=== PATIENT | male | born 1985 | race Caucasian/White ===

== ENCOUNTER 2017-01-30 16:14 | Emergency (ER) | payer OTHER ==
[~2017-01-30] VITALS: Ht 175.3 cm; Wt 80.1 kg
[~2017-01-30 16:14] MED LIST: BUPR8MIS PO; METH500T PO; PRAZ2CAP3 PO; ZOLP5TAB PO
[2017-01-30 16:16] VITALS: TEMP 36.7; Ht 175.3 cm; Wt 80.1 kg
[2017-01-30] MEDS ORDERED: BUPR8MIS SL (16:49)
[2017-01-30] MEDS ORDERED: NAPR-1169 PO (16:53)
[2017-01-30 18:51] VITALS: BP 103/85; PULSE 97; O2SAT 94
--- NOTE | 2017-01-30 23:37 | EMERGENCY ROOM VISIT NOTE ---
History Report prepared by Maddie: Rosa Elena Rae Under the Supervision of: Dr. Luna Glynn D.O. First contact with patient: 16:21 Chief Complaint: BACK PAIN Stated Complaint: BACK PAIN History of Present Illness The patient is a 31 year old male who presents to the Emergency Room with complaints of worsening lower back pain starting 2 days ago. His pain radiates to his legs. He mentions that he does have leg pain radiating from his back at baseline, but this pain is worse. He also reports diarrhea and an episode of fecal incontinence today. He has been experiencing scrotal pain and impotence in the past week. He visited his PCP for the scrotal pain and was prescribed antibiotic for epididymitis last week. He has not received his ultrasound results. He denies any nausea, vomiting, numbness, chest pain, or shortness of breath. He reports that he has been shoveling snow lately. He has a history of opiate abuse and back pain. He request that he is not given opiates today. Source of History: patient Onset: 2 days ago Position: back (lower) Timing: worsening Associated Symptoms: + diarrhea, No SOB, No chest pain, No nausea, No numbness, No vomiting Note: Pt reports leg pain, scrotal pain, impotence, stool incontinence. Review of Systems See HPI for pertinent positives & negatives. A total of 10 systems reviewed and were otherwise negative. Past Medical & Surgical Medical Problems: (1) Contusion of hand, right (2) DEPRESSIVE DISORDER NEC (3) FAM HX-CARDIOVAS DIS NEC (4) FAM HX-DIABETES MELLITUS (5) Headache (6) LUMBOSACRAL NEURITIS NOS (7) Nasal fracture (8) SUICIDAL IDEATION Family History Cancer Diabetes mellitus Heart disease Hypertension Seizures Social History Smoking Status: Former Smoker Alcohol Use: none Drug Use: cocaine Marital Status: single Housing Status: lives with family Occupation Status: retired Current/Historical Medications Scheduled Duloxetine HCl (Cymbalta), 30 MG PO BID Gabapentin (Neurontin), 300 MG PO QID Naproxen (Naprosyn), 500 MG PO BID Scheduled PRN Buprenorphine Hcl-Naloxone Hcl (Suboxone 8-2 Mg), 4 MG SL Q4-6H PRN for Pain Prazosin Hcl (Prazosin), 2 MG PO HS PRN for ANXIETY/NIGHTMARES Zolpidem Tartrate (Ambien), 5 MG PO HS PRN for Sleep Allergies Coded Allergies: No Known Allergies (Unverified , 04/19/16) Physical Exam Vital Signs Date Time Temp Pulse Resp B/P Pulse Ox O2 Delivery O2 Flow Rate FiO2 01/30/17 18:51 97 20 103/85 94 Room Air 01/30/17 16:16 36.7 114 18 113/75 96 Room Air Physical Exam HEENT: Head - normocephalic and atraumatic Pupils are equal, round, and reactive to light. Extraocular eye muscles are intact, and sclera are anicteric. Nose - moist nasal mucosa without discharge. Mouth - moist buccal mucosa. Oropharynx is nonerythematous and there is no tonsillar exudate or edema noted. Neck: Supple; no JVD, nuchal rigidity, cervical lymphadenopathy. Heart: Regular rate and rhythm. There is a normal S1 and S2 with no murmurs, clicks, or gallops appreciated. Lungs: Clear to auscultation bilaterally with no wheezes, rales, or rhonchi. Abdomen: Soft, completely nontender, nondistended, with good bowel sounds. There are no palpable pulsatile masses or hepatosplenomegaly. There is no guarding, rigidity, or rebound noted. Back: Mild reproducible discomfort over the upper lumbar spine to palpation in the midline. Extremities: No evidence of cyanosis, clubbing, or edema. There are easily palpable peripheral pulses. Skin: warm and dry with good turgor and no rashes. Neuro: Normal muscle strength in both lower extremities. 3/4 patellar reflexes bilaterally. The rectal exam was performed by the medical student and revealed good tone. Medical Decision & Procedures ED Course 1745: The patient was evaluated in room C11. A complete history and physical examination were performed. Nursing notes and previous electronic medical records were reviewed. The patient declined wanting anything for pain. He had an MRI of the lumbar spine with and without contrast ordered. 1849: I reevaluated the patient. He has elected not to have the MRI. I discussed with him the risks and benefits of the MRI. I told him that untreated spinal cord compression could be irreparable. He expressed understanding. He states that he does not want to wait any longer because he is hungry. I offered to give him some food. He tells that that he will follow-up with his PCP tomorrow and they can get him in right away to be seen. I discussed with him the treatment plan. He verbalized understanding and agreement. He will be discharged home. Medical Decision This is a 31-year-old male patient presents emergency department with worsening low back pain over the past 2 days, stool incontinence today, and worsening impotence over the past one week. The patient has a history of bulging lumbar disks at L4-L5. The patient denies any new acute medical injury. The pain worsened 2 days ago but he became quite concerned today with the stool incontinence. I felt that the patient required an acute MRI of the lumbar spine to rule out cord compression. He decided that he did not want to wait to have that test completed. He will follow-up with his PCP tomorrow. I explained to him the hazards of delayed treatment for spinal cord compression. He would not agree to stay for the MRI. He will follow-up at the [facility] tomorrow. Impression Primary Impression: Low back pain Additional Impression: Stool incontinence Scribe Attestation The scribe's documentation has been prepared under my direction and personally reviewed by me in its entirety. I confirm that the note above accurately reflects all work, treatment, procedures, and medical decision making performed by me. Departure Information Dispostion Home / Self-Care Referrals Jose Guadalupe Spicer PA-C (PCP) Forms HOME CARE DOCUMENTATION FORM, IMPORTANT VISIT INFORMATION Patient Instructions My [facility] Additional Instructions You may have spinal cord compression causing your symptoms. You need an MRI of the lumbar spine RADHA. You said you would see your PCP in the AM. Return to the ER if you change your mind or symptoms worsen Problem Qualifiers
== END 2017-01-30 19:09 | disposition home or self-care (01) ==
LOC: C.EDB 16:15 → C.EDC 19:09
DX: M54.5 Low back pain (principal); R15.9 Full incontinence of feces; F32.9 Major depressive disorder, single episode, unspecified; M51.17 Intervertebral disc disorders with radiculopathy, lumbosacral region; Z87.81 Personal history of (healed) traumatic fracture; Z87.891 Personal history of nicotine dependence; Z79.899 Other long term (current) drug therapy; Z82.49 Family history of ischemic heart disease and other diseases of the circulatory system; Z83.3 Family history of diabetes mellitus; Z82.0 Family history of epilepsy and other diseases of the nervous system

== ENCOUNTER 2017-01-31 08:31 | Emergency (ER) | payer OTHER ==
[~2017-01-31] VITALS: Ht 177.8 cm; Wt 80.0 kg
[~2017-01-31 08:31] MED LIST changes: +BUPR8MIS SL; +NAPR-1169 PO
[2017-01-31 08:33] VITALS: TEMP 36.6; Ht 177.8 cm; Wt 80.0 kg
[2017-01-31 10:14] LABS: URINE APPEARANCE CLEAR (CLEAR); URINE BILIRUBIN NEG (NEG); URINE COLOR YELLOW; URINE NITRITE NEG (NEG); URINE PH 5.5 (4.5-7.5); UROBILINOGEN NEG (NEG)
[2017-01-31 10:18] LABS: MANUAL MICROSCOPIC REQUIRED? NO; REVIEW REQ? NO
[2017-01-31] MEDS ORDERED: GADAVIST IV PRN (11:00)
--- NOTE | 2017-01-31 12:27 | DIAGNOSTIC IMAGING REPORT ---
MRI LUMBAR SPINE COMBO CLINICAL HISTORY: Chronic low back pain. Fecal incontinence. COMPARISON STUDY: MRI of the lumbar spine dated 04/13/2015. TECHNIQUE: MRI of the lumbar spine is performed utilizing various T1 and T2-weighted sequences in the axial and sagittal planes. Contrast-enhanced sequences are acquired following the IV administration of 8 cc of Gadavist. The examination is modestly degraded by motion artifact. FINDINGS: Lumbar spine: Vertebral body height and alignment are maintained throughout the lumbar spine. No destructive bony lesion is seen. Normal marrow signal intensity is preserved throughout the visualized osseous structures. The transverse and spinous processes appear intact. There is no evidence of spondylolysis. Intervertebral discs: There is degenerative disc desiccation and mild loss of height at L4-L5 and L5-S1. The remaining discs are normal in height and signal intensity. Spinal cord: The visualized spinal cord is normal in morphology and signal intensity. The conus medullaris terminates at the level of L1. The nerve roots of the cauda equina are normal in morphology. No abnormal enhancement is identified on the postcontrast sequence. L1-L2: Unremarkable. L2-L3: Unremarkable. L3-L4: Minimal facet arthropathy is of no consequence. The central canal and neural foramina are widely patent. L4-L5: There is posterior disc bulge with annular fissure. This causes minimal acquired compromise of the central canal with a minimum AP diameter of 8.5 mm. There is minimal bilateral subarticular stenosis. The neural foramina are clear. L5-S1: There is a posterior disc bulge eccentric to the right with annular fissure. This likely impinges on the transiting right-sided sacral nerve roots. The central canal is widely patent. Minimal facet arthropathy is of no consequence. The neural foramina are clear. Sacrum: Partially imaged sacrum is normal in morphology and signal intensity. Soft tissues: The paraspinous soft tissues are within normal limits. The partially visualized retroperitoneal structures are grossly unremarkable, but incompletely assessed. IMPRESSION: 1. There is no large disc herniation. 2. Degenerative disc disease at L4-L5 and L5-S1 as above. A small disc bulge eccentric to the right at L5-S1 likely impinges on the transiting right-sided sacral nerve roots. See discussion for detailed level by level analysis. 3. No destructive osseous lesion is seen. Dictated: 01/31/2017 12:01 PM Transcribed: 01/31/2017 12:27 PM [email or web address] Electronically signed by: Jamey Hester M.D. 01/31/2017 12:37 PM Dictated Date/Time: 01/31/2017 12:01 PM
--- NOTE | 2017-01-31 12:52 | EMERGENCY ROOM VISIT NOTE ---
History First contact with patient: 08:44 Chief Complaint: BACK PAIN Stated Complaint: BACK PAIN History of Present Illness Patient is a 31-year-old white male who returns to the emergency department for ongoing low back pain radiating to the left leg, with associated fecal incontinence 2, who now states that he is "ready to have his MRI." Patient was here in the emergency department yesterday and was evaluated for the same complaint. MRI was ordered however the patient essentially left without completing the workup. He was seen by Dr. Glynn, please refer to her dictation for his further information. Patient states that since leaving the emergency department, he has continued to note pain in his low back that he rates an 8/ 10. He has a history of a lumbar disc disease. He has chronic radicular symptoms into the left leg with associated weakness, but reports that this is at his baseline. He has 2 more episodes of fecal incontinence since discharge from the emergency department yesterday. He does admit to diarrhea, but has been incontinent. He denies any bladder incontinence. He does report difficulty initiating his urinary stream. He has taken his normal prescription medications including naproxen, Suboxone and gabapentin as prescribed. He denies any falls or new injuries. He was treated with an unknown antibiotic about 1-2 months ago for testicular pain. He had a normal testicular ultrasound just a couple of weeks ago. He denies a history of C. difficile. He denies any abdominal pain. Review of Systems Review of systems as per HPI. All other systems reviewed were negative. 10 systems reviewed. Past Medical/Surgical History Medical Problems: (1) Contusion of hand, right (2) DEPRESSIVE DISORDER NEC (3) FAM HX-CARDIOVAS DIS NEC (4) FAM HX-DIABETES MELLITUS (5) Headache (6) LUMBOSACRAL NEURITIS NOS (7) Nasal fracture (8) SUICIDAL IDEATION Electronic medical records are reviewed and summarized as above/below. See Problem List. Family History Cancer Diabetes mellitus Heart disease Hypertension Seizures Social History Smoking Status: Former Smoker Alcohol Use: none Drug Use: cocaine Marital Status: single Housing Status: lives with family Occupation Status: retired Current/Historical Medications Scheduled Duloxetine HCl (Cymbalta), 30 MG PO BID Gabapentin (Neurontin), 300 MG PO QID Naproxen (Naprosyn), 500 MG PO BID Scheduled PRN Buprenorphine Hcl-Naloxone Hcl (Suboxone 8-2 Mg), 4 MG SL Q4-6H PRN for Pain Prazosin Hcl (Prazosin), 2 MG PO HS PRN for ANXIETY/NIGHTMARES Zolpidem Tartrate (Ambien), 5 MG PO HS PRN for Sleep Allergies Coded Allergies: No Known Allergies (Unverified , 01/31/17) Physical Exam Vital Signs Date Time Temp Pulse Resp B/P Pulse Ox O2 Delivery O2 Flow Rate FiO2 01/31/17 13:10 82 98/88 98 Room Air 01/31/17 11:20 82 15 121/70 98 Room Air 01/31/17 09:47 67 16 129/80 95 Room Air 01/31/17 08:33 36.6 80 18 123/79 98 Physical Exam CONSTITUTIONAL: Patient is a well-appearing 31-year-old white male who was awake and alert and laying on the gurney in no acute distress. HEENT: Normocephalic, atraumatic. Pupils equal, round, reactive to light and accommodation. EOMs intact without nystagmus. Sclera are anicteric. Tympanic membranes intact, with normal landmarks. External canals are clear. Oral and nasopharynx are clear. Mucous membranes are moist. Neck: Supple; no lymphadenopathy. Heart: Regular rate and rhythm. There is a normal S1 and S2 with no murmurs, clicks, or gallops appreciated. Lungs: Clear to auscultation bilaterally with no wheezes, rales, or rhonchi. Abdomen: Bowel sounds are present. Abdomen is soft, nontender and nondistended. Patient refuses rectal exam. Spine: Generalized discomfort to palpation over the entire lumbar spine, extending into the SI joints bilaterally. Diminished lumbar spine range of motion due to discomfort. Skin is intact without erythema, increased warmth, induration or outward signs of trauma. EXTREMITIES: No cyanosis, edema, joint tenderness or swelling. No deformity.distal pulses are easily palpable. Leg lengths are symmetrical. Negative straight leg raise testing bilaterally. Lower extremity DTRs are equal and symmetrical bilaterally. He reports diminished sensation to light touch over the left lower extremity. SKIN: No lesions or rash, normal skin turgor. The rectal exam was performed by the medical student and revealed good tone. Medical Decision & Procedures ER Provider Diagnostic Interpretation: MRI LUMBAR SPINE COMBO CLINICAL HISTORY: Chronic low back pain. Fecal incontinence. COMPARISON STUDY: MRI of the lumbar spine dated 04/13/2015. TECHNIQUE: MRI of the lumbar spine is performed utilizing various T1 and T2-weighted sequences in the axial and sagittal planes. Contrast-enhanced sequences are acquired following the IV administration of 8 cc of Gadavist. The examination is modestly degraded by motion artifact. FINDINGS: Lumbar spine: Vertebral body height and alignment are maintained throughout the lumbar spine. No destructive bony lesion is seen. Normal marrow signal intensity is preserved throughout the visualized osseous structures. The transverse and spinous processes appear intact. There is no evidence of spondylolysis. Intervertebral discs: There is degenerative disc desiccation and mild loss of height at L4-L5 and L5-S1. The remaining discs are normal in height and signal intensity. Spinal cord: The visualized spinal cord is normal in morphology and signal intensity. The conus medullaris terminates at the level of L1. The nerve roots of the cauda equina are normal in morphology. No abnormal enhancement is identified on the postcontrast sequence. L1-L2: Unremarkable. L2-L3: Unremarkable. L3-L4: Minimal facet arthropathy is of no consequence. The central canal and neural foramina are widely patent. L4-L5: There is posterior disc bulge with annular fissure. This causes minimal acquired compromise of the central canal with a minimum AP diameter of 8.5 mm. There is minimal bilateral subarticular stenosis. The neural foramina are clear. L5-S1: There is a posterior disc bulge eccentric to the right with annular fissure. This likely impinges on the transiting right-sided sacral nerve roots. The central canal is widely patent. Minimal facet arthropathy is of no consequence. The neural foramina are clear. Sacrum: Partially imaged sacrum is normal in morphology and signal intensity. Soft tissues: The paraspinous soft tissues are within normal limits. The partially visualized retroperitoneal structures are grossly unremarkable, but incompletely assessed. IMPRESSION: 1. There is no large disc herniation. 2. Degenerative disc disease at L4-L5 and L5-S1 as above. A small disc bulge eccentric to the right at L5-S1 likely impinges on the transiting right-sided sacral nerve roots. See discussion for detailed level by level analysis. 3. No destructive osseous lesion is seen. Laboratory Results Test 01/31/17 09:30 Urine Color YELLOW Urine Appearance CLEAR (CLEAR) Urine pH 5.5 (4.5-7.5) Urine Specific [place] 1.000 (1.000-1.030) Urine Protein NEG (NEG) Urine Glucose (UA) NEG (NEG) Urine Ketones NEG (NEG) Urine Occult Blood NEG (NEG) Urine Nitrite NEG (NEG) Urine Bilirubin NEG (NEG) Urine Urobilinogen NEG (NEG) Urine Leukocyte Esterase NEG (NEG) ED Course The patient was seen and evaluated as above. His old records are reviewed. Urinalysis was performed and was completely clear. Lumbar spine MRI with contrast was ordered. MRI noted chronic disc changes in the lumbar spine without evidence for abscess, large disc herniation or bony lesions. The patient was unable to provide a stool sample for analysis in the emergency department. I suspect he is suffering from a diarrheal illness in addition to an exacerbation of his chronic low back pain. He does admit to doing a lot of shoveling recently. I did discuss the possibility of a C. difficile colitis with the patient due to his recent antibiotic use, and did advise that if the diarrhea persists he should have his stools analyzed. Regarding his low back pain, he does not have any findings that are consistent with acute cord compression, epidural abscess, hematoma or cauda equina syndrome. He follows with pain management. He was encouraged to continue his regular medication regimen. He was advised to follow-up with his doctors [facility] the [facility] for further care and management. Medical Decision See ED course Impression Primary Impression: Exacerbation of chronic back pain Additional Impression: Diarrhea Departure Information Referrals Jose Guadalupe Spicer PA-C (PCP) Patient Instructions My [facility] Additional Instructions Rest and avoid heavy lifting until your symptoms resolve and then gradually return to full activity. A good rule of thumb is if it hurts your back to perform a certain activity, then it should be avoided until you are healthy again. A heating pad, warm compresses, or a hot shower may help with tight muscles and can be done several times a day as needed. Continue current medications. Return to the ER immediately for any numbness, tingling, severe pain, loss of control of your bowels or bladder, inability to walk, or as needed. Follow up with your primary care physician within 3-5 days for a recheck of your current condition. Problem Qualifiers
[2017-01-31 13:10] VITALS: BP 98/88; PULSE 82; O2SAT 98
== END 2017-01-31 13:10 | disposition home or self-care (01) ==
LOC: C.EDB 08:33 → C.EDA 13:10
DX: M54.5 Low back pain (principal); G89.29 Other chronic pain; R19.7 Diarrhea, unspecified; F32.9 Major depressive disorder, single episode, unspecified; Z82.49 Family history of ischemic heart disease and other diseases of the circulatory system; Z83.3 Family history of diabetes mellitus; Z87.891 Personal history of nicotine dependence; Z79.899 Other long term (current) drug therapy

== ENCOUNTER 2017-02-11 02:55 | Emergency (ER) | payer OTHER ==
[~2017-02-11] VITALS: Ht 177.8 cm; Wt 79.9 kg
[~2017-02-11 02:55] MED LIST changes: -BUPR8MIS PO; -METH500T PO
[2017-02-11 03:03] VITALS: TEMP 37; Ht 177.8 cm; Wt 79.9 kg
[2017-02-11] MEDS ORDERED: SODIUM CHLORIDE 0.9% 1000ML 1,000 ML IV ONE (03:30)
[2017-02-11 03:42] LABS: HEMATOCRIT 38.5 % (42-52); MEAN CELL VOLUME 81.7 fL (80-100); MEAN CORPUSCULAR HEMOGLOBIN 29.7 pg (25-34); MEAN CORPUSCULAR HGB CONC 36.4 g/dl (32-36); MEAN PLATELET VOLUME 9.9 fL (7.4-10.4); PLATELET COUNT 237 K/uL (130-400); RED BLOOD COUNT 4.71 M/uL (4.7-6.1)
[2017-02-11 04:09] LABS: BUN/CREATININE RATIO 8.4 (10-20); CALCIUM 9.3 mg/dl (8.5-10.1); CREATININE 1.2 mg/dl (0.60-1.40); MAGNESIUM 2.3 mg/dl (1.8-2.4); POTASSIUM 4.3 mmol/L (3.5-5.1)
[2017-02-11 04:20] LABS: ALB/GLOB RATIO 1.4 (0.9-2); THYROID STIMULATING HORMONE 3.01 uIu/ml (0.300-4.500)
[2017-02-11 04:22] LABS: BASO % 0.8 %; BASO ABS # 0.05 K/uL (0-0.2); COMPLETE YES; EOS % 2.2 %; IG% 0.2 %; MONO % 8.9 %; NEUT % 33.9 %
[2017-02-11 04:26] LABS: BENZODIAZEPINE, URINE NEG (NEG); COCAINE,URINE NEG (NEG); PHENCYCLIDINE, URINE NEG (NEG)
[2017-02-11 05:13] LABS: LYME DISEASE AB IGG NEG (NEG); LYME DISEASE AB IGM NEG (NEG)
[2017-02-11 05:35] VITALS: BP 108/70; PULSE 70; O2SAT 99
--- NOTE | 2017-02-11 09:03 | DIAGNOSTIC IMAGING REPORT ---
CT OF THE HEAD WITHOUT CONTRAST CLINICAL HISTORY: Headache. COMPARISON STUDY: Head CT October 06, 2014. CT DOSE: 614.27 mGy.cm TECHNIQUE: Helical axial images of the head were obtained without IV contrast. Automated exposure control was utilized for the study. FINDINGS: No acute intracranial hemorrhage, midline shift or mass effect is present. Ventricular system is normal. Basilar cisterns are patent. There are no extra-axial collections. Yuen-white differentiation is maintained. There are no findings to suggest acute dural sinus thrombosis or acute territorial infarct. There is no calvarial fracture. Visualized portions of the sinuses and mastoid air cells are clear. IMPRESSION: No acute intracranial findings. Electronically signed by: Phi Dietrich M.D. 02/11/2017 9:02 AM Dictated Date/Time: 02/11/2017 9:01 AM
--- NOTE | 2017-02-12 04:08 | EMERGENCY ROOM VISIT NOTE ---
History First contact with patient: 03:11 Chief Complaint: OTHER COMPLAINT Stated Complaint: CAN'T SLEEP History of Present Illness The patient is a 31 year old male who presents to the Emergency Room with complaints of difficulty sleeping for the past 3 days. The patient states that when he lays down he feels an electric sensation running from the top of his head into his hands and feet. The patient is having difficulty going to sleep, and is worried that he will not wake up when this occurs. He has not had fever or chills. He does complain of a headache after getting up from trying to sleep that will last for a few minutes before resolving. No injury or trauma. The patient does not have new medications or rash. He denies suicidal or homicidal ideation. He has been eating, drinking, and using the bathroom is normal. He rates his discomfort otherwise a 0/10. This only occurs when he is trying to sleep. Review of Systems More than 10 systems were reviewed and otherwise negative with the exception of history of present illness. Past Medical/Surgical History Medical Problems: (1) Contusion of hand, right (2) DEPRESSIVE DISORDER NEC (3) FAM HX-CARDIOVAS DIS NEC (4) FAM HX-DIABETES MELLITUS (5) Headache (6) LUMBOSACRAL NEURITIS NOS (7) Nasal fracture (8) SUICIDAL IDEATION Family History Cancer Diabetes mellitus Heart disease Hypertension Seizures Social History Smoking Status: Current Every Day Smoker Alcohol Use: none Drug Use: cocaine Marital Status: single Housing Status: lives with family Occupation Status: retired Current/Historical Medications Scheduled Duloxetine HCl (Cymbalta), 30 MG PO BID Gabapentin (Neurontin), 300 MG PO QID Naproxen (Naprosyn), 500 MG PO BID Scheduled PRN Buprenorphine Hcl-Naloxone Hcl (Suboxone 8-2 Mg), 4 MG SL Q4-6H PRN for Pain Prazosin Hcl (Prazosin), 2 MG PO HS PRN for ANXIETY/NIGHTMARES Zolpidem Tartrate (Ambien), 5 MG PO HS PRN for Sleep Allergies Coded Allergies: No Known Allergies (Unverified , 02/11/17) Physical Exam Vital Signs Date Time Temp Pulse Resp B/P Pulse Ox O2 Delivery O2 Flow Rate FiO2 02/11/17 05:35 70 18 108/70 99 02/11/17 04:27 71 18 106/69 98 Room Air 02/11/17 03:03 37.0 101 18 119/72 96 Room Air Pain Rating (0-10): 0 Physical Exam VITALS: Vitals are noted on the nurse's note and reviewed by myself. Vital signs stable. GENERAL: Well-developed, well-nourished, white male, who is in no acute distress and resting comfortably. Patient is cooperative with the examination. HEAD: Normocephalic atraumatic. EARS: External ear normal. External auditory canals clear, tympanic membranes pearly yuen without erythema or effusion bilaterally. EYES: Pupils equal round and reactive to light and accommodation. Conjunctivae without injection, sclerae without icterus. Extraocular movements intact. NOSE: Patent, turbinates without inflammation or discharge. MOUTH: Mucous membranes moist. Tonsils are not enlarged. Pharynx without erythema, blood, or exudate. Uvula midline. Airway patent. NECK: Supple without nuchal rigidity. No lymphadenopathy. No thyromegaly. Cervical spine is nontender. HEART: Regular rate and rhythm without murmurs gallops or rubs. LUNGS: Clear to auscultation bilaterally without wheezes, rales or rhonchi. No retractions or accessory muscle use. ABDOMEN: Positive normal bowel sounds x 4. Soft, nontender, without masses or organomegaly. No guarding or rebound tenderness. MUSCULOSKELETAL: No muscle atrophy, erythema, or edema noted. Full range of motion without joint tenderness in all extremities. No tenderness to palpation. Normal gait. Strength 5/5 throughout. NEURO: Patient was alert and oriented to person place and time. CN II through XII grossly intact. Medical Decision & Procedures ER Provider Diagnostic Interpretation: CT OF THE HEAD WITHOUT CONTRAST CLINICAL HISTORY: Headache. COMPARISON STUDY: Head CT October 06, 2014. CT DOSE: 614.27 mGy.cm TECHNIQUE: Helical axial images of the head were obtained without IV contrast. Automated exposure control was utilized for the study. FINDINGS: No acute intracranial hemorrhage, midline shift or mass effect is present. Ventricular system is normal. Basilar cisterns are patent. There are no extra-axial collections. Yuen-white differentiation is maintained. There are no findings to suggest acute dural sinus thrombosis or acute territorial infarct. There is no calvarial fracture. Visualized portions of the sinuses and mastoid air cells are clear. IMPRESSION: No acute intracranial findings. Laboratory Results 02/11/17 03:29 Red Blood Count 4.71, Mean Corpuscular Volume 81.7, Mean Corpuscular Hemoglobin 29.7, Mean Corpuscular Hemoglobin Concent 36.4, Mean Platelet Volume 9.9, Neutrophils (%) (Auto) 33.9, Lymphocytes (%) (Auto) 54.0, Monocytes (%) (Auto) 8.9, Eosinophils (%) (Auto) 2.2, Basophils (%) (Auto) 0.8, Neutrophils # (Auto) 2.14, Lymphocytes # (Auto) 3.40, Monocytes # (Auto) 0.56, Eosinophils # (Auto) 0.14, Basophils # (Auto) 0.05 02/11/17 03:29 Test 02/11/17 03:29 02/11/17 03:35 White Blood Count 6.30 K/uL (4.8-10.8) Red Blood Count 4.71 M/uL (4.7-6.1) Hemoglobin 14.0 g/dL (14.0-18.0) Hematocrit 38.5 % (42-52) Mean Corpuscular Volume 81.7 fL (80-100) Mean Corpuscular Hemoglobin 29.7 pg (25-34) Mean Corpuscular Hemoglobin Concent 36.4 g/dl (32-36) Platelet Count 237 K/uL (130-400) Mean Platelet Volume 9.9 fL (7.4-10.4) Neutrophils (%) (Auto) 33.9 % Lymphocytes (%) (Auto) 54.0 % Monocytes (%) (Auto) 8.9 % Eosinophils (%) (Auto) 2.2 % Basophils (%) (Auto) 0.8 % Neutrophils # (Auto) 2.14 K/uL (1.4-6.5) Lymphocytes # (Auto) 3.40 K/uL (1.2-3.4) Monocytes # (Auto) 0.56 K/uL (0.11-0.59) Eosinophils # (Auto) 0.14 K/uL (0-0.5) Basophils # (Auto) 0.05 K/uL (0-0.2) RDW Standard Deviation 37.4 fL (36.4-46.3) RDW Coefficient of Variation 12.4 % (11.5-14.5) Immature Granulocyte % (Auto) 0.2 % Immature Granulocyte # (Auto) 0.01 K/uL (0.00-0.02) Anion Gap 3.0 mmol/L (3-11) Est Creatinine Clear Calc Drug Dose 92.9 ml/min Estimated GFR () 93.5 Estimated GFR (Non- 80.7 BUN/Creatinine Ratio 8.4 (10-20) Calcium Level 9.3 mg/dl (8.5-10.1) Magnesium Level 2.3 mg/dl (1.8-2.4) Total Bilirubin 0.4 mg/dl (0.2-1) Aspartate Amino Transf (AST/SGOT) 46 U/L (15-37) Alanine Aminotransferase (ALT/SGPT) 63 U/L (12-78) Alkaline Phosphatase 69 U/L (45-117) Total Protein 7.3 gm/dl (6.4-8.2) Albumin 4.2 gm/dl (3.4-5.0) Globulin 3.1 gm/dl (2.5-4.0) Albumin/Globulin Ratio 1.4 (0.9-2) Thyroid Stimulating Hormone (TSH) 3.010 uIu/ml (0.300-4.500) Lyme Disease IgG Antibody NEG (NEG) Lyme Disease IgM Antibody NEG (NEG) Urine Opiates Screen NEG (NEG) Urine Methadone, Qualitative NEG (NEG) Urine Barbiturates NEG (NEG) Urine Phencyclidine (PCP) Level NEG (NEG) Ur Amphetamine/Methamphetamine NEG (NEG) MDMA (Ecstasy) Screen NEG (NEG) Urine Benzodiazepines Screen NEG (NEG) Urine Cocaine Metabolite NEG (NEG) Urine Marijuana (THC) NEG (NEG) Medications Administered Medications (Trade) Dose Ordered Sig/Muna Route Start Time Stop Time Status Last Admin Dose Admin Sodium Chloride (Nss 1000ml) 1,000 ml @ 999 mls/hr Q1H1M ONCE IV 02/11/17 03:30 02/11/17 04:30 DC 02/11/17 03:30 999 MLS/HR ED Course Physical exam and history were performed. Nursing notes and EMR were reviewed. Patient appears to have sleeplessness for the past 3 days. The patient does not appear toxic on examination. He does report a headache at times with the sensation of electricity running on his body. IV access was established and labs were obtained. CT of the head was performed. The patient blood work is as above and was reviewed. He does not have a significantly elevated white blood cell count, gross anemia, bandemia, or significant electrolyte imbalance. Lipase and transaminases are nondiagnostic. Drug abuse screen was negative. CT scan of the head was also negative. TSH shows a euthyroid state. I discussed options of care with the patient at length. He does have Ambien at home that he can use for sleep. There is also the concern that this may be the early onset of a mental health episode. I offered mental health assessment to the patient, who declined. The patient felt reassured that his evaluation today did not show an imminently life-threatening process. Overall he appears safe and stable for discharge. The patient was asked to follow very closely with his PCP in the next 1-2 days. He was thoroughly invited back to the ER with any new, worsening, or concerning symptoms. He is familiar with [facility] if needed. The patient was pleased with this plan and rated his discomfort a 0/ 10 at the time of departure. The chart was completed utilizing [employer] Speech Voice Recognition Software. Grammatical errors, random word insertions, pronoun errors, and incomplete sentences are an occasional consequence of this system due to software limitations, ambient noise, and hardware issues. Any formal questions or concerns about the content, text, or information contained within the body of this dictation should be directly addressed to the provider for clarification. . Medical Decision Differential diagnosis: Etiologies such as mood disorder, infection, hypoglycemia, electrolyte abnormalities, cardiac sources, intracerebral event, toxicologic, neurologic, as well as others were entertained. Impression Primary Impression: Sleeplessness Departure Information Dispostion Home / Self-Care Condition GOOD Forms HOME CARE DOCUMENTATION FORM, IMPORTANT VISIT INFORMATION Patient Instructions My [facility] Additional Instructions You were seen and evaluated today on an emergency basis only. This is not a substitute for, or an effort to provide, complete comprehensive medical care. It is not possible to recognize and treat all injuries or illnesses in a single emergency department visit. For this reason it is recommended that you followup with your primary care physician on Sunday or Sunday for ongoing care and evaluation. Continue medications as prescribed. Drink only fluids and remain well hydrated. You are welcome to return to the emergency department anytime with new, worsening, or concerning symptoms.
== END 2017-02-11 05:37 | disposition home or self-care (01) ==
LOC: C.EDB 02:56
DX: G47.00 Insomnia, unspecified (principal); F32.9 Major depressive disorder, single episode, unspecified; M54.16 Radiculopathy, lumbar region; F17.200 Nicotine dependence, unspecified, uncomplicated; Z87.828 Personal history of other (healed) physical injury and trauma; Z87.81 Personal history of (healed) traumatic fracture; Z79.899 Other long term (current) drug therapy; Z80.9 Family history of malignant neoplasm, unspecified; Z83.3 Family history of diabetes mellitus; Z82.49 Family history of ischemic heart disease and other diseases of the circulatory system; Z82.0 Family history of epilepsy and other diseases of the nervous system

== ENCOUNTER 2017-04-15 07:44 | Emergency (ER) | payer OTHER ==
[~2017-04-15] VITALS: Ht 175.3 cm; Wt 83.6 kg
[2017-04-15 07:49] VITALS: TEMP 36; Ht 175.3 cm; Wt 83.6 kg
[2017-04-15] MEDS ORDERED: AMIT25TA9 PO (07:52)
--- NOTE | 2017-04-15 08:24 | EMERGENCY ROOM VISIT NOTE ---
History First contact with patient: 08:09 Chief Complaint: ARM PAIN Stated Complaint: ARM PAIN History of Present Illness The patient is a 31 year old male who presents to the Emergency Room with complaints of right arm pain. The patient states that he woke this morning with tingling in both arms. He states that the left arm is now fine. He states that he has pain in the right arm from the elbow to the fingers. It is on the radial side. He does not recall any specific injury. He states that he is having difficulty moving the arm because of pain. He denies any fevers. He rates his discomfort a 4/10. He denies any chest pain or trouble breathing. He denies any neck pain. He denies any history of neck pain. Review of Systems A 10 system review of systems was completed with positives and pertinent negatives listed in the HPI. Past Medical/Surgical History Medical Problems: (1) Contusion of hand, right (2) DEPRESSIVE DISORDER NEC (3) FAM HX-CARDIOVAS DIS NEC (4) FAM HX-DIABETES MELLITUS (5) Headache (6) LUMBOSACRAL NEURITIS NOS (7) Nasal fracture (8) SUICIDAL IDEATION Family History Cancer Diabetes mellitus Heart disease Hypertension Seizures Social History Smoking Status: Current Every Day Smoker Alcohol Use: none Drug Use: cocaine Marital Status: single Housing Status: lives with family Occupation Status: retired Current/Historical Medications Scheduled Amitriptyline Hcl (Elavil), 25 MG PO HS Duloxetine HCl (Cymbalta), 30 MG PO BID Gabapentin (Neurontin), 300 MG PO QID Scheduled PRN Buprenorphine Hcl-Naloxone Hcl (Suboxone 8-2 Mg), 4 MG SL Q4-6H PRN for Pain Prazosin Hcl (Prazosin), 2 MG PO HS PRN for ANXIETY/NIGHTMARES Allergies Coded Allergies: No Known Allergies (Unverified , 04/15/17) Physical Exam Vital Signs Date Time Temp Pulse Resp B/P Pulse Ox O2 Delivery O2 Flow Rate FiO2 04/15/17 11:17 87 109/81 97 04/15/17 11:01 119/83 04/15/17 10:44 81 21 04/15/17 10:31 115/77 04/15/17 10:14 80 19 92 04/15/17 10:01 115/76 04/15/17 09:30 92 126/69 93 04/15/17 07:49 36.0 95 22 129/93 95 Room Air Physical Exam VITALS: Vitals are noted on the nurse's note and reviewed by myself. Vital signs stable. GENERAL: This 31-year-old male, in no acute distress, nondiaphoretic, well- developed well-nourished. SKIN: The skin was without rashes, erythema, edema, or bruising. There is no tenting of the skin. Capillary reflex less than 2 seconds. HEAD: Normocephalic atraumatic. EARS: External ears normal in appearance. EYES: Pupils equal round and reactive to light and accommodation. Conjunctivae without injection, sclerae without icterus. The patient has normal extraocular eye movement in the right eye but not in the left. He states this is his baseline. NOSE: Patent, turbinates without inflammation or discharge. No sinus tenderness. MOUTH: Mucous membranes moist. Tonsils are not enlarged. Pharynx without erythema or exudate. Uvula midline. Airway patent. Tongue does not deviate. NECK: Supple without nuchal rigidity. Cervical spine is nontender. No JVD. HEART: Regular rate and rhythm without murmurs gallops or rubs. LUNGS: Clear to auscultation bilaterally without wheezes, rales or rhonchi. No retractions or accessory muscle use. MUSCULOSKELETAL: No muscle atrophy, erythema, or edema noted. There is decreased range of motion at the right elbow secondary to pain. The patient is able to move the wrist but does have discomfort. The patient's tenderness is over the radial aspect of the right arm from the elbow to the fingers. Radial pulses 2+. NEURO: Patient was alert and oriented to person place and time. No focal neurological deficits. Medical Decision & Procedures ER Provider Diagnostic Interpretation: CT OF THE CERVICAL SPINE WITHOUT CONTRAST CLINICAL HISTORY: Right arm pain and numbness. COMPARISON STUDY: Cervical spine CT October 06, 2014. TECHNIQUE: Helical axial images of the cervical spine were obtained without IV contrast. Sagittal and coronal reconstructions were viewed. FINDINGS: Reversal of the normal cervical lordosis is unchanged since prior exam. There is no acute fracture or suspicious lesion within the cervical spine by CT. There is no prevertebral edema. Central canal and neural foramen are suboptimally assessed by CT. Disc spaces are preserved. IMPRESSION: 1. No acute cervical spine fracture or subluxation. 2. No change in appearance of the cervical spine since prior exam of October 06, 2014. Suboptimal evaluation of the central canal and neural foramen due to CT technique. CT OF THE HEAD WITHOUT CONTRAST CLINICAL HISTORY: Left-sided facial numbness. COMPARISON STUDY: Head CT February 11, 2017. TECHNIQUE: Helical axial images of the head were obtained without IV contrast. Automated exposure control was utilized for the study. FINDINGS: No acute intracranial hemorrhage, midline shift or mass effect is present. Ventricular system is normal. Basilar cisterns are patent. There are no extra-axial collections. Yuen-white differentiation is maintained. There are no findings to suggest acute dural sinus thrombosis or acute territorial infarct. There are no calvarial abnormalities. There are post surgical findings within the sinuses. IMPRESSION: No acute intracranial findings. CHEST 2 VIEWS ROUTINE CLINICAL HISTORY: Right arm pain and tingling. COMPARISON STUDY: Chest radiograph July 21, 2016. FINDINGS: Lung volumes are normal. There is no consolidation to suggest pneumonia. A calcified granuloma within the left lower lobe is noted. Pulmonary vascularity is normal. Cardiac size is normal. Mediastinal contours are normal. Linear lower lung opacity suggests atelectasis. IMPRESSION: No acute cardiopulmonary findings. RIGHT ELBOW MIN 3 VIEWS ROUTINE CLINICAL HISTORY: Right arm pain and tingling. COMPARISON: None FINDINGS: Alignment of the right elbow is anatomic. There is no acute fracture or joint effusion. No osseous lesion is identified. IMPRESSION: No abnormality of the right elbow. Laboratory Results 04/15/17 09:07 Red Blood Count 4.50, Mean Corpuscular Volume 84.9, Mean Corpuscular Hemoglobin 29.1, Mean Corpuscular Hemoglobin Concent 34.3, Mean Platelet Volume 9.7, Neutrophils (%) (Auto) 39.2, Lymphocytes (%) (Auto) 42.0, Monocytes (%) (Auto) 14.6, Eosinophils (%) (Auto) 3.4, Basophils (%) (Auto) 0.8, Neutrophils # (Auto ) 2.07, Lymphocytes # (Auto) 2.22, Monocytes # (Auto) 0.77, Eosinophils # (Auto ) 0.18, Basophils # (Auto) 0.04 04/15/17 09:07 Test 04/15/17 09:07 04/15/17 09:20 White Blood Count 5.28 K/uL (4.8-10.8) Red Blood Count 4.50 M/uL (4.7-6.1) Hemoglobin 13.1 g/dL (14.0-18.0) Hematocrit 38.2 % (42-52) Mean Corpuscular Volume 84.9 fL (80-100) Mean Corpuscular Hemoglobin 29.1 pg (25-34) Mean Corpuscular Hemoglobin Concent 34.3 g/dl (32-36) Platelet Count 197 K/uL (130-400) Mean Platelet Volume 9.7 fL (7.4-10.4) Neutrophils (%) (Auto) 39.2 % Lymphocytes (%) (Auto) 42.0 % Monocytes (%) (Auto) 14.6 % Eosinophils (%) (Auto) 3.4 % Basophils (%) (Auto) 0.8 % Neutrophils # (Auto) 2.07 K/uL (1.4-6.5) Lymphocytes # (Auto) 2.22 K/uL (1.2-3.4) Monocytes # (Auto) 0.77 K/uL (0.11-0.59) Eosinophils # (Auto) 0.18 K/uL (0-0.5) Basophils # (Auto) 0.04 K/uL (0-0.2) RDW Standard Deviation 39.3 fL (36.4-46.3) RDW Coefficient of Variation 12.7 % (11.5-14.5) Immature Granulocyte % (Auto) 0.0 % Immature Granulocyte # (Auto) 0.00 K/uL (0.00-0.02) Activated Partial Thromboplast Time 26.2 SECONDS (21.0-31.0) Partial Thromboplastin Ratio 1.0 Anion Gap 5.0 mmol/L (3-11) Est Creatinine Clear Calc Drug Dose 98.2 ml/min Estimated GFR () 103.9 Estimated GFR (Non- 89.6 BUN/Creatinine Ratio 8.4 (10-20) Calcium Level 8.8 mg/dl (8.5-10.1) Total Bilirubin 0.4 mg/dl (0.2-1) Aspartate Amino Transf (AST/SGOT) 69 U/L (15-37) Alanine Aminotransferase (ALT/SGPT) 113 U/L (12-78) Alkaline Phosphatase 104 U/L (45-117) Total Creatine Kinase 230 U/L (39-308) Troponin I < 0.015 ng/ml (0-0.045) Pro-B-Type Natriuretic Peptide 56 pg/ml (0-450) Total Protein 6.9 gm/dl (6.4-8.2) Albumin 4.2 gm/dl (3.4-5.0) Globulin 2.7 gm/dl (2.5-4.0) Albumin/Globulin Ratio 1.6 (0.9-2) Urine Color DK YELLOW Urine Appearance CLOUDY (CLEAR) Urine pH 8.0 (4.5-7.5) Urine Specific [place] 1.024 (1.000-1.030) Urine Protein NEG (NEG) Urine Glucose (UA) NEG (NEG) Urine Ketones NEG (NEG) Urine Occult Blood NEG (NEG) Urine Nitrite NEG (NEG) Urine Bilirubin NEG (NEG) Urine Urobilinogen NEG (NEG) Urine Leukocyte Esterase NEG (NEG) Urine WBC (Auto) 1-5 /hpf (0-5) Urine RBC (Auto) 0-4 /hpf (0-4) Urine Hyaline Casts (Auto) 0 /lpf (0-5) Urine Epithelial Cells (Auto) 5-10 /lpf (0-5) Urine Bacteria (Auto) NEG (NEG) ED Course The patient was seen and examined. Previous visits were reviewed. Medication list was reviewed. The patient does not have a fever or leukocytosis. He does not have any significant electrolyte abnormalities. His transaminases are elevated. The patient does not have any abdominal pain or tenderness. CPK is not elevated. Troponin is not elevated. INR is 1.0. Urinalysis is negative. CT scan of the brain was negative CT scan of the neck does not any obvious abnormality Chest x-ray and right elbow x-rays do not reveal any obvious abnormality The patient presents to the emergency department with right upper extremity pain , numbness and subjective weakness. The patient woke up he had the symptoms in both arms but the left had resolved. The patient likely has radial nerve palsy. Throughout his day in the emergency department the symptoms in the right arm continued to resolve. He did not have any neurologic deficit on exam or by history. While he was here, he developed some numbness in the left side of his face which also spontaneously resolved. The patient also has elevation in his transaminases. He denies alcohol use. He denies any significant Tylenol use. He was advised to follow-up with his family doctor to have his liver function testing repeated. The patient should follow-up with orthopedics for further evaluation and management of the arm. He should return with any worsening symptoms. The case was discussed with Dr. Villafana who agrees with the assessment and treatment plan. Medical Decision The differential diagnosis includes radial nerve palsy, CVA, TIA, and cranial bleeding, intracranial mass, electrolyte abnormality, cardiac ischemia, tendinitis among others Impression Primary Impression: Radial nerve palsy Additional Impression: Paresthesia Departure Information Dispostion Home / Self-Care Condition GOOD Referrals Jose Guadalupe Spicer PA-C (PCP) Joe Gavin, DO Patient Instructions ED Palsy Radial Nerve, My [facility] Additional Instructions Follow up with your family doctor for further evaluation of the elevated liver enzymes Follow up with orthopedics for the arm Return with worsening symptoms Problem Qualifiers
--- NOTE | 2017-04-15 08:54 | DIAGNOSTIC IMAGING REPORT ---
CHEST 2 VIEWS ROUTINE CLINICAL HISTORY: Right arm pain and tingling. COMPARISON STUDY: Chest radiograph July 21, 2016. FINDINGS: Lung volumes are normal. There is no consolidation to suggest pneumonia. A calcified granuloma within the left lower lobe is noted. Pulmonary vascularity is normal. Cardiac size is normal. Mediastinal contours are normal. Linear lower lung opacity suggests atelectasis. IMPRESSION: No acute cardiopulmonary findings. Electronically signed by: Phi Dietrich M.D. 04/15/2017 8:53 AM Dictated Date/Time: 04/15/2017 8:51 AM
--- NOTE | 2017-04-15 08:54 | DIAGNOSTIC IMAGING REPORT ---
RIGHT ELBOW MIN 3 VIEWS ROUTINE CLINICAL HISTORY: Right arm pain and tingling. COMPARISON: None FINDINGS: Alignment of the right elbow is anatomic. There is no acute fracture or joint effusion. No osseous lesion is identified. IMPRESSION: No abnormality of the right elbow. Electronically signed by: Phi Dietrich M.D. 04/15/2017 8:53 AM Dictated Date/Time: 04/15/2017 8:53 AM
[2017-04-15 09:28] LABS: BASO % 0.8 %; BASO ABS # 0.04 K/uL (0-0.2); COMPLETE YES; EOS % 3.4 %; HEMATOCRIT 38.2 % (42-52); LYMPH ABS # 2.22 K/uL (1.2-3.4); MEAN CELL VOLUME 84.9 fL (80-100); MEAN CORPUSCULAR HEMOGLOBIN 29.1 pg (25-34); MEAN CORPUSCULAR HGB CONC 34.3 g/dl (32-36); MEAN PLATELET VOLUME 9.7 fL (7.4-10.4); MONO % 14.6 %; NEUT % 39.2 %; PLATELET COUNT 197 K/uL (130-400); WHITE BLOOD COUNT 5.28 K/uL (4.8-10.8)
[2017-04-15 09:37] LABS: ALT/SGPT 113 U/L (12-78); AST/SGOT 69 U/L (15-37); BLOOD UREA NITROGEN 9 mg/dl (7-18); BUN/CREATININE RATIO 8.4 (10-20); CALCIUM 8.8 mg/dl (8.5-10.1); CARBON DIOXIDE 31 mmol/L (21-32); CHLORIDE 106 mmol/L (98-107); GLUCOSE 90 mg/dl (70-99); POTASSIUM 4.2 mmol/L (3.5-5.1); SODIUM 142 mmol/L (136-145)
[2017-04-15 09:42] LABS: ALB/GLOB RATIO 1.6 (0.9-2); ALKALINE PHOSPHATASE 104 U/L (45-117)
--- NOTE | 2017-04-15 09:42 | DIAGNOSTIC IMAGING REPORT ---
CT OF THE HEAD WITHOUT CONTRAST CLINICAL HISTORY: Left-sided facial numbness. COMPARISON STUDY: Head CT February 11, 2017. TECHNIQUE: Helical axial images of the head were obtained without IV contrast. Automated exposure control was utilized for the study. FINDINGS: No acute intracranial hemorrhage, midline shift or mass effect is present. Ventricular system is normal. Basilar cisterns are patent. There are no extra-axial collections. Yuen-white differentiation is maintained. There are no findings to suggest acute dural sinus thrombosis or acute territorial infarct. There are no calvarial abnormalities. There are post surgical findings within the sinuses. IMPRESSION: No acute intracranial findings. Electronically signed by: Phi Dietrich M.D. 04/15/2017 9:41 AM Dictated Date/Time: 04/15/2017 9:40 AM
--- NOTE | 2017-04-15 09:45 | DIAGNOSTIC IMAGING REPORT ---
CT OF THE CERVICAL SPINE WITHOUT CONTRAST CLINICAL HISTORY: Right arm pain and numbness. COMPARISON STUDY: Cervical spine CT October 06, 2014. TECHNIQUE: Helical axial images of the cervical spine were obtained without IV contrast. Sagittal and coronal reconstructions were viewed. FINDINGS: Reversal of the normal cervical lordosis is unchanged since prior exam. There is no acute fracture or suspicious lesion within the cervical spine by CT. There is no prevertebral edema. Central canal and neural foramen are suboptimally assessed by CT. Disc spaces are preserved. IMPRESSION: 1. No acute cervical spine fracture or subluxation. 2. No change in appearance of the cervical spine since prior exam of October 06, 2014. Suboptimal evaluation of the central canal and neural foramen due to CT technique. Electronically signed by: Phi Dietrich M.D. 04/15/2017 9:43 AM Dictated Date/Time: 04/15/2017 9:41 AM
[2017-04-15 10:02] LABS: URINE APPEARANCE CLOUDY (CLEAR); URINE BILIRUBIN NEG (NEG); URINE COLOR DK YELLOW; URINE NITRITE NEG (NEG); URINE SPECIFIC GRAVITY 1.024 (1.000-1.030); UROBILINOGEN NEG (NEG); ZZUR CULT IF INDIC CLEAN CATCH NO
[2017-04-15 10:11] LABS: MANUAL MICROSCOPIC REQUIRED? NO; REVIEW REQ? NO
[2017-04-15 11:17] VITALS: BP 109/81; PULSE 87; O2SAT 97
== END 2017-04-15 11:19 | disposition home or self-care (01) ==
LOC: EDBD 07:44 → C.EDA 07:46
DX: G58.8 Other specified mononeuropathies (principal); R20.2 Paresthesia of skin; F32.9 Major depressive disorder, single episode, unspecified; Z82.0 Family history of epilepsy and other diseases of the nervous system; Z82.49 Family history of ischemic heart disease and other diseases of the circulatory system; Z83.3 Family history of diabetes mellitus; F17.200 Nicotine dependence, unspecified, uncomplicated; Z79.899 Other long term (current) drug therapy

== ENCOUNTER 2017-07-13 12:43 | Inpatient (IN) | payer OTHER ==
[~2017-07-13] VITALS: Ht 172.7 cm; Wt 79.2 kg
[~2017-07-13 12:43] MED LIST changes: +AMIT25TA9 PO; -NAPR-1169 PO; -ZOLP5TAB PO
[2017-07-13] MEDS ORDERED: LORAZEPAM INJ 1 MG in SYRINGE 0.5 ML IV STA (13:21)
[2017-07-13] MEDS ORDERED: OMEP20CA9 PO (13:23)
[2017-07-13] MEDS ORDERED: BUPR1SUB23 PO (13:23)
[2017-07-13] MEDS ORDERED: DOCU-94 PO (13:23)
[2017-07-13] MEDS ORDERED: SODIUM CHLORIDE 0.9% 1000ML 1,000 ML IV ONE ×2 (13:30→14:45)
--- NOTE | 2017-07-13 13:33 | EMERGENCY ROOM VISIT NOTE ---
History First contact with patient: 13:27 Chief Complaint: OTHER COMPLAINT Stated Complaint: WITHDRAWL History of Present Illness The patient is a 32 year old male who presents to the Emergency Room with complaints of chest pain and shakiness that started this morning at 11 AM. The patient says that it feels like he is withdrawing from narcotics. He doesn't a history of narcotic abuse. He has not misused narcotics within the last year and a half. He does take Suboxone daily. He denies any changes in his medications. He denies any alcohol or other drug use. He denies any shortness of breath. No abdominal pain, nausea or vomiting. He reports feeling fine yesterday. His other complaint is he has having a difficult time urinating. He feels like his bladder is full, but he is unable to void. He denies any fever or chills. No dysuria. No hematuria. Review of Systems 10 system review performed and negative unless noted in HPI or below Past Medical/Surgical History Medical Problems: (1) Contusion of hand, right (2) DEPRESSIVE DISORDER NEC (3) FAM HX-CARDIOVAS DIS NEC (4) FAM HX-DIABETES MELLITUS (5) Headache (6) LUMBOSACRAL NEURITIS NOS (7) Nasal fracture (8) SUICIDAL IDEATION Family History Cancer Diabetes mellitus Heart disease Hypertension Seizures Social History Smoking Status: Current Every Day Smoker Alcohol Use: none Drug Use: cocaine Marital Status: single Housing Status: lives with family Occupation Status: retired Current/Historical Medications Scheduled Buprenorphine Hcl-Naloxone Hcl (Suboxone 8-2 Mg), 1 TAB PO BID Docusate Sodium (Colace), 1 CAP PO BID Duloxetine HCl (Cymbalta), 60 MG PO BID Gabapentin (Neurontin), 300 MG PO BID Omeprazole (Prilosec), 20 MG PO BID Physical Exam Vital Signs Date Time Temp Pulse Resp B/P (MAP) Pulse Ox O2 Delivery O2 Flow Rate FiO2 07/13/17 14:18 103 18 127/76 94 Room Air 07/13/17 13:03 112 07/13/17 12:50 37.6 114 18 118/93 96 Room Air Physical Exam GENERAL: 32-year-old male, anxious in appearance, manic, sweaty, SKIN: The skin was warm and moist HEAD: Normocephalic atraumatic. EYES: Pupils equal round and reactive to light and accommodation. Conjunctivae without injection, sclerae without icterus. Extraocular movements intact. MOUTH: Mucous membranes dry NECK: Supple without nuchal rigidity. No lymphadenopathy. Cervical spine is nontender. No JVD. HEART: Tachycardic, regular rhythm without murmurs gallops or rubs. LUNGS: Clear to auscultation bilaterally without wheezes, rales or rhonchi. No accessory muscle use. ABDOMEN: Positive bowel sounds x 4.Soft, nontender, without organomegaly. No guarding or rebound tenderness. MUSCULOSKELETAL: No muscle atrophy, erythema, or edema noted. Strength 5/5 throughout. NEURO: Patient was alert and oriented to person place and time. Tremor noted. Normal sensation to touch. No focal neurological deficits. Medical Decision & Procedures ER Provider Diagnostic Interpretation: SINGLE VIEW CHEST CLINICAL HISTORY: Atypical chest pain. FINDINGS: An AP, portable, upright chest radiograph is compared to study dated 04/15/2017 and correlated with chest CT dated 06/27/2015. The examination is degraded by portable technique and patient rotation. The cardiomediastinal silhouette is unremarkable. A 1.1 cm calcification containing nodule is again seen at the left lung base. No airspace consolidation, pleural effusion, or pneumothorax is seen. The bony thorax is grossly intact. IMPRESSION: 1. No acute cardiopulmonary abnormality. 2. A calcification containing nodule at the left lung base is again noted. This was better characterized by CT on 06/27/2015. Electronically signed by: Jamey Hester M.D. 07/13/2017 1:53 PM Dictated Date/Time: 07/13/2017 1:52 PM The status of this report is Signed. Laboratory Results 07/13/17 14:00 Red Blood Count 4.38, Mean Corpuscular Volume 83.3, Mean Corpuscular Hemoglobin 29.9, Mean Corpuscular Hemoglobin Concent 35.9, Mean Platelet Volume 10.2, Neutrophils (%) (Auto) 44.8, Lymphocytes (%) (Auto) 44.6, Monocytes (%) (Auto) 8.8, Eosinophils (%) (Auto) 1.4, Basophils (%) (Auto) 0.3, Neutrophils # (Auto) 3.11, Lymphocytes # (Auto) 3.10, Monocytes # (Auto) 0.61, Eosinophils # (Auto) 0.10, Basophils # (Auto) 0.02 07/13/17 14:00 Test 07/13/17 14:00 07/13/17 14:20 07/13/17 14:35 White Blood Count 6.95 K/uL (4.8-10.8) Red Blood Count 4.38 M/uL (4.7-6.1) Hemoglobin 13.1 g/dL (14.0-18.0) Hematocrit 36.5 % (42-52) Mean Corpuscular Volume 83.3 fL (80-100) Mean Corpuscular Hemoglobin 29.9 pg (25-34) Mean Corpuscular Hemoglobin Concent 35.9 g/dl (32-36) Platelet Count 201 K/uL (130-400) Mean Platelet Volume 10.2 fL (7.4-10.4) Neutrophils (%) (Auto) 44.8 % Lymphocytes (%) (Auto) 44.6 % Monocytes (%) (Auto) 8.8 % Eosinophils (%) (Auto) 1.4 % Basophils (%) (Auto) 0.3 % Neutrophils # (Auto) 3.11 K/uL (1.4-6.5) Lymphocytes # (Auto) 3.10 K/uL (1.2-3.4) Monocytes # (Auto) 0.61 K/uL (0.11-0.59) Eosinophils # (Auto) 0.10 K/uL (0-0.5) Basophils # (Auto) 0.02 K/uL (0-0.2) RDW Standard Deviation 39.3 fL (36.4-46.3) RDW Coefficient of Variation 13.0 % (11.5-14.5) Immature Granulocyte % (Auto) 0.1 % Immature Granulocyte # (Auto) 0.01 K/uL (0.00-0.02) Anion Gap 7.0 mmol/L (3-11) Est Creatinine Clear Calc Drug Dose 94.1 ml/min Estimated GFR () 103.1 Estimated GFR (Non- 89.0 BUN/Creatinine Ratio 6.5 (10-20) Calcium Level 8.8 mg/dl (8.5-10.1) Magnesium Level 2.1 mg/dl (1.8-2.4) Total Bilirubin 0.4 mg/dl (0.2-1) Aspartate Amino Transf (AST/SGOT) 22 U/L (15-37) Alanine Aminotransferase (ALT/SGPT) 34 U/L (12-78) Alkaline Phosphatase 72 U/L (45-117) Total Creatine Kinase 118 U/L (39-308) Creatine Kinase MB < 0.5 ng/ml (0.5-3.6) Creatine Kinase MB Ratio (0-3.0) Troponin I < 0.015 ng/ml (0-0.045) Total Protein 7.3 gm/dl (6.4-8.2) Albumin 4.6 gm/dl (3.4-5.0) Globulin 2.7 gm/dl (2.5-4.0) Albumin/Globulin Ratio 1.7 (0.9-2) Lipase 84 U/L (73-393) Ethyl Alcohol mg/dL < 3.0 mg/dl (0-3) Urine Color YELLOW Urine Appearance CLEAR (CLEAR) Urine pH 7.0 (4.5-7.5) Urine Specific [place] 1.014 (1.000-1.030) Urine Protein NEG (NEG) Urine Glucose (UA) NEG (NEG) Urine Ketones NEG (NEG) Urine Occult Blood NEG (NEG) Urine Nitrite NEG (NEG) Urine Bilirubin NEG (NEG) Urine Urobilinogen NEG (NEG) Urine Leukocyte Esterase NEG (NEG) Urine Opiates Screen NEG (NEG) Urine Methadone, Qualitative NEG (NEG) Urine Barbiturates NEG (NEG) Urine Phencyclidine (PCP) Level NEG (NEG) Ur Amphetamine/Methamphetamine NEG (NEG) MDMA (Ecstasy) Screen NEG (NEG) Urine Benzodiazepines Screen NEG (NEG) Urine Cocaine Metabolite NEG (NEG) Urine Marijuana (THC) NEG (NEG) Medications Administered Medications (Trade) Dose Ordered Sig/Muna Route Start Time Stop Time Status Last Admin Dose Admin Lorazepam 1 mg/ Syringe 1 ml @ 0.5 mls/min NOW STAT IV 07/13/17 13:21 07/13/17 13:26 DC 07/13/17 14:18 0.5 MLS/MIN Sodium Chloride 1,000 ml @ 999 mls/hr Q1H1M ONCE IV 07/13/17 13:30 07/13/17 14:30 DC 07/13/17 14:17 999 MLS/HR Acetaminophen (Tylenol Tab) 1,000 mg NOW STAT PO 07/13/17 14:42 07/13/17 14:47 DC 07/13/17 15:12 1,000 MG Aspirin (Aspirin Chew) 324 mg NOW STAT PO 07/13/17 14:42 07/13/17 14:47 DC 07/13/17 15:11 324 MG Sodium Chloride 1,000 ml @ 999 mls/hr Q1H1M ONCE IV 07/13/17 14:45 07/13/17 15:45 07/13/17 15:13 999 MLS/HR ECG Indication: chest pain Rate (beats per minute): 108 Rhythm: sinus tachycardia ED Course Patient was seen and examined Vital signs including blood pressure were reviewed medications list was verified with patient The patient was given 1 mg of Ativan IV and hydrated with a bolus of normal saline Labs were obtained, and a saline lock was established imaging was performed and reviewed The patient was reassessed and resting more comfortably. A bladder scan was performed which showed 1 L of urine. A Ma was inserted. The patient was reassessed. We discussed the results of his workup. He voiced understanding. He is in agreement to stay in the hospital overnight. The case was also discussed with case management and with the [facility] hospitalist group. The patient will be admitted for further treatment. Medical Decision Differential diagnosis: Illicit drug use, withdrawal from narcotics, lane, pulmonary embolus, Acute myocardial infarction, cardiac arrhythmia, anemia, thyroid abnormality, pneumothorax, pneumonia, bronchitis, pericarditis, electrolyte imbalance, serotonin syndrome This patient is a 32-year-old male that presented to the emergency department with complaints of severe shaking, sweating and left-sided chest pain. From a cardiac standpoint, his EKG did not show any signs of acute ischemia. His chest x-ray shows a pulmonary nodule, which is old. After reviewing the patient 's medications, I was concerned that he may be experiencing serotonin syndrome given the fact that he is hyperreflexive, sweating, tachycardic and mildly febrile. This is likely due to the fact that the patient is on duloxetine and Suboxone, which he claims he is taking correctly. There have been no changes in his medications. Either way, the patient will need to be observed in the hospital overnight for monitoring and likely medication adjustments. Blood Pressure Screening Patient's blood pressure: Normal blood pressure Impression Primary Impression: Serotonin syndrome Departure Information Referrals Jose Guadalupe Spicer PA-C (PCP) Patient Instructions [facility]
--- NOTE | 2017-07-13 13:54 | DIAGNOSTIC IMAGING REPORT ---
SINGLE VIEW CHEST CLINICAL HISTORY: Atypical chest pain. FINDINGS: An AP, portable, upright chest radiograph is compared to study dated 04/15/2017 and correlated with chest CT dated 06/27/2015. The examination is degraded by portable technique and patient rotation. The cardiomediastinal silhouette is unremarkable. A 1.1 cm calcification containing nodule is again seen at the left lung base. No airspace consolidation, pleural effusion, or pneumothorax is seen. The bony thorax is grossly intact. IMPRESSION: 1. No acute cardiopulmonary abnormality. 2. A calcification containing nodule at the left lung base is again noted. This was better characterized by CT on 06/27/2015. Electronically signed by: Jamey Hester M.D. 07/13/2017 1:53 PM Dictated Date/Time: 07/13/2017 1:52 PM
[2017-07-13 14:22] LABS: BASO % 0.3 %; BASO ABS # 0.02 K/uL (0-0.2); COMPLETE YES; EOS % 1.4 %; HEMATOCRIT 36.5 % (42-52); IG% 0.1 %; LYMPH % 44.6 %; MEAN CELL VOLUME 83.3 fL (80-100); MEAN CORPUSCULAR HEMOGLOBIN 29.9 pg (25-34); MEAN CORPUSCULAR HGB CONC 35.9 g/dl (32-36); MEAN PLATELET VOLUME 10.2 fL (7.4-10.4); MONO % 8.8 %; NEUT % 44.8 %; PLATELET COUNT 201 K/uL (130-400); RED BLOOD COUNT 4.38 M/uL (4.7-6.1); WHITE BLOOD COUNT 6.95 K/uL (4.8-10.8)
[2017-07-13] MEDS ORDERED: ASPIRIN 324 MG CHEW PO STA (14:42)
[2017-07-13] MEDS ORDERED: ACETAMINOPHEN 500 MG TAB PO STA (14:42)
[2017-07-13 14:45] LABS: ALT/SGPT 34 U/L (12-78); AST/SGOT 22 U/L (15-37); BLOOD UREA NITROGEN 7 mg/dl (7-18); BUN/CREATININE RATIO 6.5 (10-20); CALCIUM 8.8 mg/dl (8.5-10.1); CARBON DIOXIDE 28 mmol/L (21-32); CHLORIDE 105 mmol/L (98-107); GLUCOSE 102 mg/dl (70-99); MAGNESIUM 2.1 mg/dl (1.8-2.4); POTASSIUM 3.8 mmol/L (3.5-5.1); SODIUM 140 mmol/L (136-145)
[2017-07-13 14:46] LABS: URINE APPEARANCE CLEAR (CLEAR); URINE BILIRUBIN NEG (NEG); URINE COLOR YELLOW; URINE NITRITE NEG (NEG); URINE SPECIFIC GRAVITY 1.014 (1.000-1.030); UROBILINOGEN NEG (NEG)
[2017-07-13 14:48] LABS: MANUAL MICROSCOPIC REQUIRED? NO; REVIEW REQ? NO
[2017-07-13 14:51] LABS: ALB/GLOB RATIO 1.7 (0.9-2); ALKALINE PHOSPHATASE 72 U/L (45-117)
[2017-07-13 15:18] LABS: BENZODIAZEPINE, URINE NEG (NEG); COCAINE,URINE NEG (NEG); PHENCYCLIDINE, URINE NEG (NEG)
[2017-07-13] MEDS ORDERED: LORAZEPAM 2 MG/ML 1 ML VIAL IV STA (15:47)
[2017-07-13 15:58] VITALS: O2SAT 94; Ht 172.7 cm; Wt 79.2 kg
[2017-07-13] MEDS ORDERED: POLYETHYLENE (MIRALAX) 17 GM PACK PO PRN (16:00)
[2017-07-13] MEDS ORDERED: ALUMINUM/MAGNESIUM/SIMETH (MAALOX MAX) 30 ML UDC PO PRN (16:00)
[2017-07-13] MEDS ORDERED: ONDANSETRON INJ 2 MG/ML 2 ML VIAL IV PRN (16:00)
[2017-07-13] MEDS ORDERED: MAGNESIUM HYDROXIDE SUSP 30 ML UDC PO PRN (16:00)
[2017-07-13] MEDS ORDERED: LORAZEPAM 2 MG/ML 1 ML VIAL IV PRN (16:00)
--- NOTE | 2017-07-13 16:31 | History and Physical ---
History & Physical Date & Time of Service: Jul 13, 2017 at 16:10 Chief Complaint: Withdrawl Primary Care Physician: Jose Guadalupe Spicer PA-C History of Present Illness Source: patient, clinic records, hospital records Patient is a pleasant 32 y/o male, with PMHx of GERD, chronic back pain, nightmares, depression, tobacco abuse, and h/o narcotic abuse currently on Suboxone, who presented to the ED because of "blacking-out" episodes, jerkiness , and falls occurring around 11AM today. Patient was in his normal state of health until the events occurring today. He was helping his dad clean windows. When he was finished, he went to return to his vehicle and fell/blacked out. He then proceed to drive home, but episodes continued so he presented to the ED. Patient is experiencing diffuse body clonus. He has never experienced anything like this before. He denies any drug use. He denies any alcohol use. He denies recent changes in his medication. He denies any current life stressors. Additionally, patient admits to difficulty with urination. Symptoms have been ongoing for weeks now. He states it takes him hours of trying to urinate before he can actually go. +bladder fullness. Patient denies any fever, chills, sweats , lightheadedness, dizziness, vision changes, CP, palpitations, edema, SOB, wheezing, cough, abdominal pain, nausea, vomiting, diarrhea, melena, numbness/ tingling, weakness, muscle/joint pain, anxiety/depression, active bleeding, or new skin discoloration/changes. Past Medical/Surgical History Medical Problems: GERD chronic back pain nightmares depression tobacco abuse h/o narcotic abuse Family History Cancer Diabetes mellitus Heart disease Hypertension Seizures Social History Smoking Status: Current Every Day Smoker Drug Use: cocaine Marital Status: single Housing status: lives with family Occupational Status: retired Multi-Drug Resistant Organisms History of MDRO: No Allergies Coded Allergies: No Known Allergies (Unverified , 04/15/17) Home Medications Scheduled Buprenorphine Hcl-Naloxone Hcl (Suboxone 8-2 Mg), 1 TAB PO BID Docusate Sodium (Colace), 1 CAP PO BID Duloxetine HCl (Cymbalta), 60 MG PO BID Gabapentin (Neurontin), 300 MG PO BID Omeprazole (Prilosec), 20 MG PO BID Physical Exam Vital Signs Date Time Temp Pulse Resp B/P (MAP) Pulse Ox O2 Delivery O2 Flow Rate FiO2 07/13/17 16:00 88 20 115/82 98 Room Air 07/13/17 14:18 103 18 127/76 94 Room Air 07/13/17 13:03 112 07/13/17 12:50 37.6 114 18 118/93 96 Room Air General Appearance: no apparent distress, + pertinent finding (full body clonus ) Head: normocephalic, atraumatic Eyes: PERRL ENT: hearing grossly normal Neck: supple Respiratory/Chest: lungs clear, no respiratory distress, no accessory muscle use Cardiovascular: + tachycardia (rhythm regular ) Abdomen/GI: normal bowel sounds, non tender, soft Genitourinary - Male: + pertinent finding (Lerma- draining clear/yellow urine ) Back: normal inspection Extremities/Musculoskelatal: no calf tenderness, no pedal edema Neurologic/Psych: alert, normal mood/affect, oriented x 3 Skin: normal color, warm/dry, no rash Diagnostics Laboratory Results Results Past 24 Hours Test 07/13/17 14:00 07/13/17 14:20 07/13/17 14:35 Range/Units White Blood Count 6.95 4.8-10.8 K/uL Red Blood Count 4.38 4.7-6.1 M/uL Hemoglobin 13.1 14.0-18.0 g/dL Hematocrit 36.5 42-52 % Mean Corpuscular Volume 83.3 80-100 fL Mean Corpuscular Hemoglobin 29.9 25-34 pg Mean Corpuscular Hemoglobin Concent 35.9 32-36 g/dl Platelet Count 201 130-400 K/uL Mean Platelet Volume 10.2 7.4-10.4 fL Neutrophils (%) (Auto) 44.8 % Lymphocytes (%) (Auto) 44.6 % Monocytes (%) (Auto) 8.8 % Eosinophils (%) (Auto) 1.4 % Basophils (%) (Auto) 0.3 % Neutrophils # (Auto) 3.11 1.4-6.5 K/uL Lymphocytes # (Auto) 3.10 1.2-3.4 K/uL Monocytes # (Auto) 0.61 0.11-0.59 K/uL Eosinophils # (Auto) 0.10 0-0.5 K/uL Basophils # (Auto) 0.02 0-0.2 K/uL RDW Standard Deviation 39.3 36.4-46.3 fL RDW Coefficient of Variation 13.0 11.5-14.5 % Immature Granulocyte % (Auto) 0.1 % Immature Granulocyte # (Auto) 0.01 0.00-0.02 K/uL Sodium Level 140 136-145 mmol/L Potassium Level 3.8 3.5-5.1 mmol/L Chloride Level 105 98-107 mmol/L Carbon Dioxide Level 28 21-32 mmol/L Anion Gap 7.0 3-11 mmol/L Blood Urea Nitrogen 7 7-18 mg/dl Creatinine 1.10 0.60-1.40 mg/dl Est Creatinine Clear Calc Drug Dose 94.1 ml/min Estimated GFR () 103.1 Estimated GFR (Non- 89.0 BUN/Creatinine Ratio 6.5 10-20 Random Glucose 102 70-99 mg/dl Calcium Level 8.8 8.5-10.1 mg/dl Magnesium Level 2.1 1.8-2.4 mg/dl Total Bilirubin 0.4 0.2-1 mg/dl Aspartate Amino Transf (AST/SGOT) 22 15-37 U/L Alanine Aminotransferase (ALT/SGPT) 34 12-78 U/L Alkaline Phosphatase 72 45-117 U/L Total Creatine Kinase 118 39-308 U/L Creatine Kinase MB < 0.5 0.5-3.6 ng/ml Creatine Kinase MB Ratio 0-3.0 Troponin I < 0.015 0-0.045 ng/ml Total Protein 7.3 6.4-8.2 gm/dl Albumin 4.6 3.4-5.0 gm/dl Globulin 2.7 2.5-4.0 gm/dl Albumin/Globulin Ratio 1.7 0.9-2 Lipase 84 73-393 U/L Ethyl Alcohol mg/dL < 3.0 0-3 mg/dl Urine Color YELLOW Urine Appearance CLEAR CLEAR Urine pH 7.0 4.5-7.5 Urine Specific [place] 1.014 1.000-1.030 Urine Protein NEG NEG Urine Glucose (UA) NEG NEG Urine Ketones NEG NEG Urine Occult Blood NEG NEG Urine Nitrite NEG NEG Urine Bilirubin NEG NEG Urine Urobilinogen NEG NEG Urine Leukocyte Esterase NEG NEG Urine Opiates Screen NEG NEG Urine Methadone, Qualitative NEG NEG Urine Barbiturates NEG NEG Urine Phencyclidine (PCP) Level NEG NEG Ur Amphetamine/Methamphetamine NEG NEG MDMA (Ecstasy) Screen NEG NEG Urine Benzodiazepines Screen NEG NEG Urine Cocaine Metabolite NEG NEG Urine Marijuana (THC) NEG NEG Diagnostic Radiology SINGLE VIEW CHEST CLINICAL HISTORY: Atypical chest pain. FINDINGS: An AP, portable, upright chest radiograph is compared to study dated 04/15/2017 and correlated with chest CT dated 06/27/2015. The examination is degraded by portable technique and patient rotation. The cardiomediastinal silhouette is unremarkable. A 1.1 cm calcification containing nodule is again seen at the left lung base. No airspace consolidation, pleural effusion, or pneumothorax is seen. The bony thorax is grossly intact. IMPRESSION: 1. No acute cardiopulmonary abnormality. 2. A calcification containing nodule at the left lung base is again noted. This was better characterized by CT on 06/27/2015. Electronically signed by: Jamey Hester M.D. 07/13/2017 1:53 PM Dictated Date/Time: 07/13/2017 1:52 PM The status of this report is Signed. Draft = Not yet reviewed or approved by Radiologist. Signed = Reviewed and approved by Radiologist. EKG CEFERINO JAIME ID:[id number] 13-JUL-2017 12:58:37 [facility] Poor data quality, interpretation may be adversely affected Sinus tachycardia Otherwise normal ECG When compared with ECG of 21-JUL-2016 23:47, No significant change was found 25mm/s 10mm/mV 150Hz 8.0 SP2 12SL 241 DINA: 0 Referred by: Unconfirmed Vent. 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 "blacking-out" episodes, jerkiness, and falls, ?secondary to serotonin syndrome vs conversion disorder vs other etiology: - Admit to med/surg - IV NSS @ 100 ml/hr - IV Ativan 1 mg q4 hrs PRN - Tylenol PRN for fevers - Neuro checks q4 hrs - Check MRI - Urine drug screen- negative - Consult neurology, appreciate recommendations - Consult psychology, appreciate recommendations Urinary retention: - Bladder scan in ED for 1000 ml- Lerma placed - UA negative - Start Flomax 0.4 mg HS - Check PSA level Depression: Hold Cymbalta 60 mg BID for ?serotonin syndrome Chronic low back pain: Continue Gabapentin 300 mg BID h/o narcotic abuse: Continue Suboxone BID GERD: Protonix BID- resume Prilosec BID at discharge DVT prophylaxis: Lovenox SQ Code Status: LEVEL I, FULL Dispo: From home, lives w/ family i personally examined pt and verified all ray points w T Murarik PAC twitching/jerking. also urinary retention. HPI as above vitals noted. has near constant fairly high amplitude jerking of both legs at this time, notes that it's far calmer than before. generally tremulous nonspecifically. no rigidity. no cogwheeling. motor 5/5 equal b/l UE and LE. no noted sensory deficits. discussed necessity of rectal to check prostate given urinary retention and he understands but declines right now due to just wanting to eat. relates is OK w it having to be done during this hospital stay just declines for now tremors/urinary retention -if relates together seems to be neurologic pattern - ?MS, odd spinal cord pathology such as transverse myelitis, ?conversion -if separate add drug interaction "soft" serotonin syndrome to ddx for tremors and premature BPH to ddx for urinary retention -ativan prn for now -lerma drainage for now, urine culture -start w MRI brain, low threshold to MRI Cspine, Tspine -neurology and psych evals Level of Care Med/Surg Resuscitation Status FULL RESUSCITATION VTE Prophylaxis VTE Risk Assessment Done? Y/N: Yes Risk Level: Low Given or contraindicated: Enoxaparin (Lovenox)SQ, T.E.D. Stockings, SCD's
[2017-07-13] MEDS ORDERED: GABA-113 PO (16:52)
[2017-07-13] MEDS ORDERED: CYM/30 PO (16:54)
[2017-07-13] MEDS ORDERED: GADAVIST IV PRN (17:45)
--- NOTE | 2017-07-13 17:45 | DIAGNOSTIC IMAGING REPORT ---
BRAIN COMBO CLINICAL HISTORY: 32 years-old Male presenting with withdrawal, mental status change, shaky, history of necrotic diffuse. TECHNIQUE: Multisequence, multiplanar MR imaging of the brain was performed before and after the administration of intravenous contrast. IV contrast: 7.5 mL of Gadavist. COMPARISON: CT head from 04/15/2017. FINDINGS: Image quality is significantly degraded by motion artifact on postcontrast imaging. This limits diagnostic sensitivity of the exam. Ventricles and sulci normal in size. Brain parenchyma normal in appearance with preserved flores-white differentiation. No mass effect or midline shift. No hemorrhage or acute territorial infarct. No extra-axial fluid collection. T2 skull base flow voids preserved. No abnormal parenchymal enhancement. Bone marrow signal intensity within the calvarium within normal limits. IMPRESSION: No acute intracranial abnormality. Image quality is significantly degraded on postcontrast imaging secondary to motion artifact which limits diagnostic sensitivity of the exam. Within this limitation, no abnormal enhancement. Electronically signed by: Tino Reynolds M.D. 07/13/2017 5:44 PM Dictated Date/Time: 07/13/2017 5:40 PM
[2017-07-13] MEDS: SODIUM CHLORIDE 0.9% 1000ML 1,000 ML IV SCH (17:59)
[2017-07-13 18:18] VITALS: BP 119/72; PULSE 95; TEMP 37; O2SAT 99
[2017-07-13 19:04] LABS: PROTHROMBIN TIME (PATIENT) 10.6 SECONDS (9.0-12.0)
[2017-07-13] MEDS ORDERED: NICOTINE 21 MG/24 HR TDSY TD ONE (21:45)
[2017-07-13] MEDS: BUPRENORPHINE/NALOXONE 8/2 MG TAB SL SCH (21:59)
[2017-07-13] MEDS: DOCUSATE SODIUM 100 MG CAP PO SCH (21:59)
[2017-07-13] MEDS: PANTOprazole SOD 40 MG TAB PO SCH (21:59)
[2017-07-13] MEDS: TAMSULOSIN HCL 0.4 MG CAP PO SCH (22:01)
[2017-07-13] MEDS: ENOXAPARIN 40 MG/0.4 ML SYR SQ SCH (22:01)
[2017-07-13] MEDS: GABAPENTIN 300 MG CAP PO SCH (22:05)
[2017-07-13 23:00] VITALS: BP 148/101; PULSE 88; TEMP 36.8; O2SAT 84
[2017-07-13 23:05] VITALS: O2SAT 100
[2017-07-13] MEDS ORDERED: NITROGLYCERIN 0.4 MG SL PER TAB CHARGE SL STA (23:25)
[2017-07-13] MEDS ORDERED: NITROGLYCERIN 0.4 MG SL PER TAB CHARGE ONE (23:29)
[2017-07-13 23:30] VITALS: BP 140/98; PULSE 82; TEMP 36.8; O2SAT 99
[2017-07-13] MEDS: ACETAMINOPHEN 325 MG TAB PO PRN (23:40)
[2017-07-13] MEDS: LORAZEPAM INJ 1 MG in SYRINGE 0.5 ML IV PRN (23:55)
[2017-07-14] VITALS: O2SAT 100
[2017-07-14] MEDS: SODIUM CHLORIDE 0.9% 1000ML 1,000 ML IV SCH ×4 (01:09→21:43)
[2017-07-14] MEDS: LIDOCAINE HCL 2% JELLY 30 ML TUBE EXT PRN ×3 (01:10→21:42)
--- NOTE | 2017-07-14 05:26 | DIAGNOSTIC IMAGING REPORT ---
CHEST ONE VIEW PORTABLE CLINICAL HISTORY: 32 years-old Male presenting with shortness of breath, chest pain. TECHNIQUE: Portable upright AP view of the chest was obtained. COMPARISON: 07/13/2017. FINDINGS: Cardiomediastinal silhouette normal. Old calcified granuloma the left lung base. No focal infiltrate. No large effusion or pneumothorax. Suggestion of mild bronchial wall thickening. Mildly low lung volumes with hypoventilatory changes. Osseous structures normal. Upper abdomen normal. IMPRESSION: 1. Mildly low lung volumes with hypoventilatory changes. 2. Suggestion of mild bronchial wall thickening, which could suggest reactive airways disease. Electronically signed by: Tino Reynolds M.D. 07/14/2017 5:25 AM Dictated Date/Time: 07/14/2017 5:24 AM
[2017-07-14 07:36] VITALS: BP 119/78; PULSE 79; TEMP 36.5; O2SAT 100
[2017-07-14 08:00] VITALS: O2SAT 100
[2017-07-14] MEDS: BUPRENORPHINE/NALOXONE 8/2 MG TAB SL SCH ×3 (08:00→19:38)
[2017-07-14] MEDS: DOCUSATE SODIUM 100 MG CAP PO SCH ×2 (08:26→19:37)
[2017-07-14] MEDS: GABAPENTIN 300 MG CAP PO SCH ×2 (08:26→19:38)
[2017-07-14] MEDS: PANTOprazole SOD 40 MG TAB PO SCH ×2 (08:26→19:38)
[2017-07-14] MEDS: NICOTINE 21 MG/24 HR TDSY TD SCH (08:27)
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
[2017-07-14] MEDS: ACETAMINOPHEN 325 MG TAB PO PRN ×2 (10:47→15:16)
[2017-07-14 10:48] LABS: HEMATOCRIT 33.9 % (42-52); MEAN CELL VOLUME 84.5 fL (80-100); MEAN CORPUSCULAR HEMOGLOBIN 29.9 pg (25-34); MEAN CORPUSCULAR HGB CONC 35.4 g/dl (32-36); MEAN PLATELET VOLUME 10.1 fL (7.4-10.4); PLATELET COUNT 170 K/uL (130-400); RED BLOOD COUNT 4.01 M/uL (4.7-6.1); WHITE BLOOD COUNT 5.35 K/uL (4.8-10.8)
--- NOTE | 2017-07-14 10:58 | Progress Note ---
Subjective Date of Service: Jul 14, 2017. Subjective Pt evaluation today including: conversation w/ patient, physical exam, chart review, lab review, review of studies, conversation w/ strategic consultant, review of inpatient medication list Pt still tremulous and finding it hard to sit still in bed No pain Pt does report mild headache Problem List Medical Problems: (1) Abdominal pain Status: Acute (2) Acute exacerbation of chronic low back pain Status: Acute (3) Constipation Status: Acute (4) Diarrhea Status: Acute (5) Low back pain Status: Acute (6) Paresthesia Status: Acute (7) Radial nerve palsy Status: Acute (8) Right hand pain Status: Acute (9) RUQ abdominal pain Status: Acute (10) Serotonin syndrome Status: Acute (11) Sleeplessness Status: Acute (12) Stool incontinence Status: Acute Review of Systems Constitutional: No fever, No chills, No sweats, No weakness Eyes: No worsening of vision, No eye pain, No redness, No discharge Respiratory: No cough, No sputum, No wheezing, No shortness of breath, No dyspnea on exertion Cardiac: No chest pain, No orthopnea, No PND, No edema Abdomen: No pain, No nausea, No vomiting, No diarrhea, No constipation Musculoskeletal: No joint pain, No muscle pain, No swelling, No calf pain Male : No dysuria, No urinary frequency, No incontinence, No slowing stream Neurologic: No memory loss, No paralysis, No weakness, No numbness/tingling Psychiatric: No depression symptoms, No anhedonism, No anxiety, No insomnia Endo: No fatigue, No excessive thirst Skin: No rash, No itch Objective Vital Signs Date Time Temp Pulse Resp B/P (MAP) Pulse Ox O2 Delivery O2 Flow Rate FiO2 07/14/17 08:00 100 Room Air 07/14/17 07:36 36.5 79 18 119/78 (92) 100 Room Air 07/14/17 00:00 100 Room Air 07/13/17 23:30 36.8 82 22 140/98 (112) 99 Nasal Cannula 2.0 07/13/17 23:05 100 Nasal Cannula 2.0 07/13/17 23:00 36.8 88 28 148/101 (117) 84 Room Air 07/13/17 18:18 37.0 95 22 119/72 (88) 99 Room Air 07/13/17 16:45 90 20 110/85 100 Room Air 07/13/17 16:00 88 20 115/82 98 Room Air 07/13/17 15:58 94 Room Air 07/13/17 14:18 103 18 127/76 94 Room Air 07/13/17 13:03 112 07/13/17 12:50 37.6 114 18 118/93 96 Room Air Physical Exam General Appearance: WD/WN, + mild distress Eyes: normal inspection, PERRL, EOMI, sclerae normal Neck: supple, no adenopathy, thyroid normal, no JVD Respiratory/Chest: chest non-tender, lungs clear, normal breath sounds, no respiratory distress Cardiovascular: regular rate, rhythm, no edema, no gallop, no JVD Abdomen: normal bowel sounds, non tender, soft, no organomegaly Extremities: normal range of motion, non-tender, normal inspection, no pedal edema Neurologic/Psychiatric: no motor/sensory deficits, alert, + pertinent finding ( hyperreflexia) Skin: normal color, warm/dry, no rash Lymphatic: no adenopathy Laboratory Results Last 24 Hours Test 07/13/17 14:00 07/13/17 14:20 07/13/17 14:35 07/13/17 23:12 White Blood Count 6.95 K/uL Red Blood Count 4.38 M/uL Hemoglobin 13.1 g/dL Hematocrit 36.5 % Mean Corpuscular Volume 83.3 fL Mean Corpuscular Hemoglobin 29.9 pg Mean Corpuscular Hemoglobin Concent 35.9 g/dl Platelet Count 201 K/uL Mean Platelet Volume 10.2 fL Neutrophils (%) (Auto) 44.8 % Lymphocytes (%) (Auto) 44.6 % Monocytes (%) (Auto) 8.8 % Eosinophils (%) (Auto) 1.4 % Basophils (%) (Auto) 0.3 % Neutrophils # (Auto) 3.11 K/uL Lymphocytes # (Auto) 3.10 K/uL Monocytes # (Auto) 0.61 K/uL Eosinophils # (Auto) 0.10 K/uL Basophils # (Auto) 0.02 K/uL RDW Standard Deviation 39.3 fL RDW Coefficient of Variation 13.0 % Immature Granulocyte % (Auto) 0.1 % Immature Granulocyte # (Auto) 0.01 K/uL Prothrombin Time 10.6 SECONDS Prothromb Time International Ratio 1.0 Activated Partial Thromboplast Time 26.0 SECONDS Partial Thromboplastin Ratio 1.0 Sodium Level 140 mmol/L Potassium Level 3.8 mmol/L Chloride Level 105 mmol/L Carbon Dioxide Level 28 mmol/L Anion Gap 7.0 mmol/L Blood Urea Nitrogen 7 mg/dl Creatinine 1.10 mg/dl Est Creatinine Clear Calc Drug Dose 94.1 ml/min Estimated GFR () 103.1 Estimated GFR (Non- 89.0 BUN/Creatinine Ratio 6.5 Random Glucose 102 mg/dl Calcium Level 8.8 mg/dl Magnesium Level 2.1 mg/dl Total Bilirubin 0.4 mg/dl Aspartate Amino Transf (AST/SGOT) 22 U/L Alanine Aminotransferase (ALT/SGPT) 34 U/L Alkaline Phosphatase 72 U/L Total Creatine Kinase 118 U/L Creatine Kinase MB < 0.5 ng/ml Creatine Kinase MB Ratio Troponin I < 0.015 ng/ml Total Protein 7.3 gm/dl Albumin 4.6 gm/dl Globulin 2.7 gm/dl Albumin/Globulin Ratio 1.7 Lipase 84 U/L Ethyl Alcohol mg/dL < 3.0 mg/dl Urine Color YELLOW Urine Appearance CLEAR Urine pH 7.0 Urine Specific [place] 1.014 Urine Protein NEG Urine Glucose (UA) NEG Urine Ketones NEG Urine Occult Blood NEG Urine Nitrite NEG Urine Bilirubin NEG Urine Urobilinogen NEG Urine Leukocyte Esterase NEG Urine Opiates Screen NEG Urine Methadone, Qualitative NEG Urine Barbiturates NEG Urine Phencyclidine (PCP) Level NEG Ur Amphetamine/Methamphetamine NEG MDMA (Ecstasy) Screen NEG Urine Benzodiazepines Screen NEG Urine Cocaine Metabolite NEG Urine Marijuana (THC) NEG Bedside Glucose 109 mg/dl Test 07/14/17 10:12 White Blood Count 5.35 K/uL Red Blood Count 4.01 M/uL Hemoglobin 12.0 g/dL Hematocrit 33.9 % Mean Corpuscular Volume 84.5 fL Mean Corpuscular Hemoglobin 29.9 pg Mean Corpuscular Hemoglobin Concent 35.4 g/dl RDW Standard Deviation 39.3 fL RDW Coefficient of Variation 12.8 % Platelet Count 170 K/uL Mean Platelet Volume 10.1 fL Assessment and Plan Patient is a pleasant 32 y/o male, with PMHx of GERD, chronic back pain, nightmares, depression, tobacco abuse, and h/o narcotic abuse currently on Suboxone, who presented to the ED because of "blacking-out" episodes, jerkiness , and falls occurring around 11AM today. Myoclonic jerks, hyperreflexia, ?secondary to serotonin syndrome vs anticholinergic syndrome -Pt reports taking 20-25 benadryl tabs at night - Admit to med/surg - IV NSS @ 100 ml/hr - IV Ativan 1 mg q4 hrs PRN, cautious with use - Tylenol PRN for fevers - Neuro checks q4 hrs - Urine drug screen- negative - Consult neurology, likely related to mixed serotonin syndrome/anticholinergic syndrome, hold all benadryl and stop cymbalta at this time - Consult psychology, appreciate recommendations Urinary retention: - Bladder scan in ED for 1000 ml- Ma placed - UA negative - Start Flomax 0.4 mg HS - Check PSA level Depression: Hold Cymbalta 60 mg BID for ?serotonin syndrome Chronic low back pain: Continue Gabapentin 300 mg BID h/o narcotic abuse: Continue Suboxone BID GERD: Protonix BID- resume Prilosec BID at discharge DVT prophylaxis: Lovenox SQ Code Status: LEVEL I, FULL
[2017-07-14 11:27] LABS: THYROID STIMULATING HORMONE 0.792 uIu/ml (0.300-4.500)
[2017-07-14 11:29] LABS: BLOOD UREA NITROGEN 5 mg/dl (7-18); BUN/CREATININE RATIO 6.6 (10-20); CARBON DIOXIDE 29 mmol/L (21-32); CHLORIDE 110 mmol/L (98-107); CREATININE 0.79 mg/dl (0.60-1.40); GLUCOSE 80 mg/dl (70-99); SODIUM 142 mmol/L (136-145)
[2017-07-14] MEDS: LORAZEPAM INJ 1 MG in SYRINGE 0.5 ML IV PRN ×2 (11:41→18:27)
[2017-07-14 15:14] VITALS: BP 124/76; PULSE 72; TEMP 36.4; O2SAT 99
[2017-07-14 18:20] VITALS: BP 109/71; PULSE 91
[2017-07-14] MEDS: TAMSULOSIN HCL 0.4 MG CAP PO SCH (19:38)
[2017-07-14 20:00] VITALS: O2SAT 100
[2017-07-14] MEDS ORDERED: LORAZEPAM INJ 1 MG in SYRINGE 0.5 ML IV ONE (21:15)
[2017-07-14] MEDS: ENOXAPARIN 40 MG/0.4 ML SYR SQ SCH (21:42)
[2017-07-15] VITALS: O2SAT 100
[2017-07-15] MEDS: BUPRENORPHINE/NALOXONE 8/2 MG TAB SL SCH ×3 (07:25→20:17)
[2017-07-15] MEDS: PANTOprazole SOD 40 MG TAB PO SCH ×2 (07:25→20:17)
[2017-07-15] MEDS: DOCUSATE SODIUM 100 MG CAP PO SCH ×2 (07:25→20:17)
[2017-07-15] MEDS: GABAPENTIN 300 MG CAP PO SCH ×2 (07:25→20:17)
[2017-07-15] MEDS: NICOTINE 21 MG/24 HR TDSY TD SCH (07:26)
[2017-07-15] MEDS: SODIUM CHLORIDE 0.9% 1000ML 1,000 ML IV SCH ×2 (07:26→15:11)
[2017-07-15 07:51] VITALS: BP 124/82; PULSE 71; TEMP 36.7
[2017-07-15 07:52] LABS: HEMATOCRIT 33.6 % (42-52); MEAN CELL VOLUME 81.6 fL (80-100); MEAN CORPUSCULAR HEMOGLOBIN 29.6 pg (25-34); MEAN CORPUSCULAR HGB CONC 36.3 g/dl (32-36); MEAN PLATELET VOLUME 9.9 fL (7.4-10.4); PLATELET COUNT 182 K/uL (130-400); RED BLOOD COUNT 4.12 M/uL (4.7-6.1); WHITE BLOOD COUNT 5.29 K/uL (4.8-10.8)
[2017-07-15 08:00] VITALS: O2SAT 99
[2017-07-15 08:30] LABS: BUN/CREATININE RATIO 6.3 (10-20); CALCIUM 8.4 mg/dl (8.5-10.1); CREATININE 0.72 mg/dl (0.60-1.40); POTASSIUM 3.9 mmol/L (3.5-5.1)
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
[2017-07-15] MEDS: ACETAMINOPHEN 325 MG TAB PO PRN (13:56)
[2017-07-15] MEDS: LORAZEPAM INJ 1 MG in SYRINGE 0.5 ML IV PRN (15:10)
[2017-07-15 15:42] VITALS: BP 131/80; PULSE 73; TEMP 36.8; O2SAT 98
--- NOTE | 2017-07-15 16:41 | Progress Note ---
Subjective Date of Service: Jul 15, 2017. Subjective Pt evaluation today including: conversation w/ patient, physical exam, chart review, lab review, review of studies, review of inpatient medication list Pt resting comfortably in bed No blacking out episodes Reports feeling less anxious No acute events overnight Problem List Medical Problems: (1) Abdominal pain Status: Acute (2) Acute exacerbation of chronic low back pain Status: Acute (3) Constipation Status: Acute (4) Diarrhea Status: Acute (5) Low back pain Status: Acute (6) Paresthesia Status: Acute (7) Radial nerve palsy Status: Acute (8) Right hand pain Status: Acute (9) RUQ abdominal pain Status: Acute (10) Serotonin syndrome Status: Acute (11) Sleeplessness Status: Acute (12) Stool incontinence Status: Acute Review of Systems Constitutional: No fever, No chills, No sweats, No weakness ENT: No hearing loss, No unusual epistaxis, No nasal symptoms, No sore throat Respiratory: No cough, No sputum, No wheezing, No shortness of breath, No dyspnea on exertion Cardiac: No chest pain, No orthopnea, No PND, No edema, No claudication Abdomen: No pain, No nausea, No vomiting, No diarrhea, No constipation Musculoskeletal: No joint pain, No muscle pain, No swelling, No calf pain Male : No dysuria, No urinary frequency, No incontinence, No slowing stream Neurologic: No memory loss, No paralysis, No weakness, No numbness/tingling Psychiatric: No depression symptoms, No anhedonism, No anxiety, No insomnia Heme: No abnormal bleeding/bruising, No clotting problems Skin: No rash, No itch Objective Vital Signs Date Time Temp Pulse Resp B/P (MAP) Pulse Ox O2 Delivery O2 Flow Rate FiO2 07/15/17 16:00 Room Air 07/15/17 15:42 36.8 73 16 131/80 (97) 98 07/15/17 08:00 99 Room Air 07/15/17 07:51 36.7 71 18 124/82 (96) Room Air 07/15/17 00:00 100 Room Air 07/14/17 20:00 100 Room Air 07/14/17 18:20 91 24 109/71 (84) Physical Exam General Appearance: WD/WN, no apparent distress Eyes: normal inspection, PERRL, sclerae normal Neck: supple, no adenopathy, thyroid normal, no JVD Respiratory/Chest: chest non-tender, lungs clear, normal breath sounds, no respiratory distress Cardiovascular: regular rate, rhythm, no edema, no gallop, no JVD Abdomen: normal bowel sounds, non tender, soft, no organomegaly Neurologic/Psychiatric: no motor/sensory deficits, alert, normal mood/affect, oriented x 3 Laboratory Results Last 24 Hours Test 07/15/17 07:15 White Blood Count 5.29 K/uL Red Blood Count 4.12 M/uL Hemoglobin 12.2 g/dL Hematocrit 33.6 % Mean Corpuscular Volume 81.6 fL Mean Corpuscular Hemoglobin 29.6 pg Mean Corpuscular Hemoglobin Concent 36.3 g/dl RDW Standard Deviation 38.8 fL RDW Coefficient of Variation 12.9 % Platelet Count 182 K/uL Mean Platelet Volume 9.9 fL Sodium Level 141 mmol/L Potassium Level 3.9 mmol/L Chloride Level 108 mmol/L Carbon Dioxide Level 29 mmol/L Anion Gap 4.0 mmol/L Blood Urea Nitrogen 5 mg/dl Creatinine 0.72 mg/dl Est Creatinine Clear Calc Drug Dose 143.8 ml/min Estimated GFR () 144.1 Estimated GFR (Non- 124.3 BUN/Creatinine Ratio 6.3 Random Glucose 104 mg/dl Calcium Level 8.4 mg/dl Assessment and Plan Patient is a pleasant 32 y/o male, with PMHx of GERD, chronic back pain, nightmares, depression, tobacco abuse, and h/o narcotic abuse currently on Suboxone, who presented to the ED because of "blacking-out" episodes, jerkiness , and falls occurring around 11AM today. 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 - IV NSS @ 100 ml/hr - IV Ativan 1 mg q4 hrs PRN, cautious with use - Tylenol PRN for fevers - Neuro checks q4 hrs - Urine drug screen- negative - Consult neurology, likely related to mixed serotonin syndrome/anticholinergic syndrome, hold all benadryl and stop cymbalta at this time - Consult psychology, appreciate recommendations Urinary retention: - Bladder scan in ED for 1000 ml- Ma placed - UA negative - Start Flomax 0.4 mg HS - PSA level 0.790 Depression: Hold Cymbalta 60 mg BID for ?serotonin syndrome Chronic low back pain: Continue Gabapentin 300 mg BID h/o narcotic abuse: Continue Suboxone BID GERD: Protonix BID- resume Prilosec BID at discharge DVT prophylaxis: Lovenox SQ Code Status: LEVEL I, FULL
[2017-07-15] MEDS: ENOXAPARIN 40 MG/0.4 ML SYR SQ SCH (20:17)
[2017-07-15] MEDS: TAMSULOSIN HCL 0.4 MG CAP PO SCH (20:17)
[2017-07-16] MEDS: SODIUM CHLORIDE 0.9% 1000ML 1,000 ML IV SCH ×2 (01:19→08:21)
[2017-07-16 07:15] LABS: HEMATOCRIT 36.3 % (42-52); MEAN CELL VOLUME 83.4 fL (80-100); MEAN CORPUSCULAR HEMOGLOBIN 28.7 pg (25-34); MEAN CORPUSCULAR HGB CONC 34.4 g/dl (32-36); PLATELET COUNT 194 K/uL (130-400); RED BLOOD COUNT 4.35 M/uL (4.7-6.1); WHITE BLOOD COUNT 6.17 K/uL (4.8-10.8)
[2017-07-16 07:36] VITALS: BP 114/69; PULSE 79; TEMP 36.8; O2SAT 100
[2017-07-16 07:43] LABS: CALCIUM 8.7 mg/dl (8.5-10.1); CREATININE 0.87 mg/dl (0.60-1.40); POTASSIUM 3.9 mmol/L (3.5-5.1)
[2017-07-16] MEDS: DOCUSATE SODIUM 100 MG CAP PO SCH ×2 (08:00→08:58)
[2017-07-16] MEDS: BUPRENORPHINE/NALOXONE 8/2 MG TAB SL SCH (08:00)
[2017-07-16] MEDS: GABAPENTIN 300 MG CAP PO SCH ×2 (08:00→08:58)
[2017-07-16] MEDS: NICOTINE 21 MG/24 HR TDSY TD SCH ×2 (08:00→08:59)
[2017-07-16] MEDS: PANTOprazole SOD 40 MG TAB PO SCH ×2 (08:00→08:58)
--- NOTE | 2017-07-16 15:06 | Discharge Summary ---
Discharge Summary Date of Service Jul 16, 2017. Discharge Summary Admission Date: Jul 13, 2017 at 16:10 Discharge Date: Jul 16, 2017 Discharge Disposition: Home (against medical advise) Principal Diagnosis: against medical advise Problems/Secondary Diagnoses: Myoclonic jerks, hyperreflexia, possible secondary to serotonin syndrome vs anticholinergic syndrome Urinary retention: Depression: Chronic low back pain: Hospital Course 32 y/o male, with PMHx of GERD, chronic back pain, nightmares, depression, tobacco abuse, and h/o narcotic abuse currently on Suboxone, was admitted on because of Myoclonic jerks Per report he presented to the ED because of "blacking-out" episodes, jerkiness , and falls occurring around 11AM on the day of admission Myoclonic jerks, hyperreflexia, ?secondary to serotonin syndrome vs anticholinergic syndrome -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/surg - IV NSS @ 100 ml/hr - IV Ativan 1 mg q4 hrs PRN, cautious with use - Tylenol PRN for fevers - Neuro checks q4 hrs - Urine drug screen- negative - Consult neurology, likely related to mixed serotonin syndrome/anticholinergic syndrome, hold all benadryl and stop cymbalta at this time - Consult psychology, appreciate recommendations Urinary retention: - Bladder scan in ED for 1000 ml- Ma placed - UA negative - Start Flomax 0.4 mg HS - PSA level 0.790 Depression: Hold Cymbalta 60 mg BID for ?serotonin syndrome Chronic low back pain: Continue Gabapentin 300 mg BID h/o narcotic abuse: Continue Suboxone BID GERD: Protonix BID- resume Prilosec BID at discharge DVT prophylaxis: Lovenox SQ Code Status: LEVEL I, FULL This morning patient wanted to go home, I was in an critical care for 1 of my patients, I told nurse I can see patient in 30 minutes and then decide if we are able to release him or not, however patient done one to wait to me, nurse reported patient signed AGAINST MEDICAL ADVICE document. No charge for this note Total Time Spent: Less than 30 minutes This includes examination of the patient, discharge planning, medication reconciliation, and communication with other providers. Discharge Instructions Please refer to the electronic Patient Visit Report (Discharge Instructions) for additional information. Additional Copies To Jose Guadalupe Spicer PA-C
== END 2017-07-16 09:55 | disposition left against medical advice (07) | DRG 918 ==
LOC: EDBD 12:43 → C.EDB 12:46 → C.MS4W 16:10 → ENRESERV 17:08
PROVIDERS: ADMIT Family Medicine; ATTEND Hospitalist
DX: T45.0X1A Poisoning by antiallergic and antiemetic drugs, accidental (unintentional), initial encounter (principal); G25.3 Myoclonus; R29.2 Abnormal reflex; T50.995A Adverse effect of other drugs, medicaments and biological substances, initial encounter; T44.3X5A Adverse effect of other parasympatholytics [anticholinergics and antimuscarinics] and spasmolytics, initial encounter; N40.1 Benign prostatic hyperplasia with lower urinary tract symptoms; R33.9 Retention of urine, unspecified; G44.89 Other headache syndrome; G89.29 Other chronic pain; T14.90 Injury, unspecified; M54.5 Low back pain; W19.XXXS Unspecified fall, sequela; K21.9 Gastro-esophageal reflux disease without esophagitis; F41.9 Anxiety disorder, unspecified; F32.9 Major depressive disorder, single episode, unspecified; F17.210 Nicotine dependence, cigarettes, uncomplicated; Z86.59 Personal history of other mental and behavioral disorders; Z81.8 Family history of other mental and behavioral disorders; Z81.4 Family history of other substance abuse and dependence; Z79.899 Other long term (current) drug therapy

== ENCOUNTER 2017-07-16 17:30 | Emergency (ER) | payer OTHER ==
[~2017-07-16 17:30] MED LIST changes: +BUPR1SUB23 PO; +CYM/30 PO; +DOCU-94 PO; +GABA-113 PO; +OMEP20CA9 PO
== END 2017-07-16 17:40 | disposition left against medical advice (07) ==
LOC: C.EDB 17:32
DX: R42 Dizziness and giddiness (principal)

== ENCOUNTER 2017-08-06 14:00 | Emergency (ER) | payer OTHER ==
[~2017-08-06] VITALS: Ht 177.8 cm; Wt 81.5 kg
[~2017-08-06 14:00] MED LIST changes: -AMIT25TA9 PO; -BUPR8MIS SL; -PRAZ2CAP3 PO
[2017-08-06 14:04] VITALS: TEMP 37; Ht 177.8 cm; Wt 81.5 kg
[2017-08-06] MEDS ORDERED: IBUPROFEN 600 MG TAB PO STA (14:16)
--- NOTE | 2017-08-06 14:39 | DIAGNOSTIC IMAGING REPORT ---
LEFT KNEE 1 OR 2 VIEWS ROUTINE CLINICAL HISTORY: left knee pain pain COMPARISON: None. DISCUSSION: The bones and joint spaces appear intact. There is no evidence of fracture, dislocation or bony disease. There is no evidence for soft tissue swelling. IMPRESSION: Negative study. The above report was generated using voice recognition software. It may contain grammatical, syntax or spelling errors. Electronically signed by: Jeramy Urbano M.D. 08/06/2017 2:38 PM Dictated Date/Time: 08/06/2017 2:37 PM
--- NOTE | 2017-08-06 15:29 | EMERGENCY ROOM VISIT NOTE ---
ED Visit Note First contact with patient: 14:11 CHIEF COMPLAINT: Left Knee injury HISTORY OF PRESENT ILLNESS: This 32-year-old male presents the ER with chief complaint of left knee pain. The patient states that he was playing with his dog outside yesterday and since that time he has pain in his left knee. The patient states it is worse with movement or weightbearing. The patient denies any locking or giving out of the knee. The patient does not remember any specific knee injury. The patient denies any prior knee injury or ever seeing an orthopedic surgeon in the past. The patient is currently on Suboxone REVIEW OF SYSTEMS: 6 system review was performed and was negative unless stated otherwise in history of present illness. PMH: The patient is healthy; drug addiction SOCIAL HISTORY: Patient lives alone. The patient admits to tobacco use but denies any alcohol use. PHYSICAL EXAM: Vital Signs: Were reviewed Reviewed Nurse's notes. GENERAL: 32- year-old white male appears in no acute distress. MENTAL STATUS: Alert, oriented, and cooperative. LEFT KNEE: No gross bony deformity noted. No erythema or edema noted. The patient has tenderness palpation over the medial joint space. Limited range of motion secondary to pain. There is no ligamentous instability. The skin is normal and intact. EMERGENCY DEPARTMENT COURSE: The patient was evaluated. The patient's EMR medication list were reviewed. The patient was given Motrin 600 mg by mouth for pain. X-ray of the left knee was ordered and interpreted by the radiologist and myself. DIAGNOSTICS:LEFT KNEE 1 OR 2 VIEWS ROUTINE CLINICAL HISTORY: left knee pain pain COMPARISON: None. DISCUSSION: The bones and joint spaces appear intact. There is no evidence of fracture, dislocation or bony disease. There is no evidence for soft tissue swelling. IMPRESSION: Negative study. The above report was generated using voice recognition software. It may contain grammatical, syntax or spelling errors. Electronically signed by: Jeramy Urbano M.D. 08/06/2017 2:38 PM Dictated Date/Time: 08/06/2017 2:37 PM The patient was informed of the findings. The patient was placed in Fazal wrap and given crutches. The patient was discharged home in stable condition. DIAGNOSIS: Sprained left Knee DISCHARGE INSTRUCTIONS: ibuprofen, 600 mg every 6 hours if needed for pain. Ice to and elevation to the knee frequently for the next 24 hours. Use Fazal wrap and use crutches to aid in ambulation until pain is tolerable without them. If symptoms are not improving in 4-5 days, follow-up with family physician or orthopedics. Problem List Medical Problems: (1) Contusion of hand, right Status: Resolved (2) DEPRESSIVE DISORDER NEC Status: Chronic (3) FAM HX-CARDIOVAS DIS NEC Status: Chronic (4) FAM HX-DIABETES MELLITUS Status: Chronic (5) Headache Status: Resolved (6) LUMBOSACRAL NEURITIS NOS Status: Chronic (7) Nasal fracture Status: Chronic (8) SUICIDAL IDEATION Status: Chronic Current/Historical Medications Scheduled Buprenorphine Hcl-Naloxone Hcl (Suboxone 8-2 Mg), 1 TAB PO BID Docusate Sodium (Colace), 1 CAP PO BID Gabapentin (Neurontin), 300 MG PO BID Omeprazole (Prilosec), 20 MG PO BID Allergies Coded Allergies: No Known Allergies (Unverified , 08/06/17) Vital Signs Date Time Temp Pulse Resp B/P (MAP) Pulse Ox O2 Delivery O2 Flow Rate FiO2 08/06/17 14:04 37.0 89 16 116/82 98 Room Air Medications Administered Medications (Trade) Dose Ordered Sig/Muna Route Start Time Stop Time Status Last Admin Dose Admin Ibuprofen (Motrin Tab) 600 mg NOW STAT PO 08/06/17 14:16 08/06/17 14:18 DC 08/06/17 14:21 600 MG Departure Information Referrals Jose Guadalupe Spicer PA-C (PCP) Patient Instructions My [facility]
[2017-08-06 15:31] VITALS: BP 116/84; PULSE 78; O2SAT 96
== END 2017-08-06 15:30 | disposition home or self-care (01) ==
LOC: C.EDB 14:01 → C.EDD 15:30
DX: S83.92XA Sprain of unspecified site of left knee, initial encounter (principal); X58.XXXA Exposure to other specified factors, initial encounter; F17.200 Nicotine dependence, unspecified, uncomplicated; F32.9 Major depressive disorder, single episode, unspecified; Z87.81 Personal history of (healed) traumatic fracture; Z87.828 Personal history of other (healed) physical injury and trauma; Z79.899 Other long term (current) drug therapy